=== PATIENT | female | born 1990 | race Caucasian/White ===

== ENCOUNTER → 2017-06-26 12:11 | Outpatient (CLI) | payer OTHER, SELFPAY ==
[2017-06-26 12:39] LABS: Potassium 3.4 mmol/L (3.5-5.1)
== END ==
PROVIDERS: Visit Provider Obstetrics & Gynecology
DX: Z34.83 Encounter for supervision of other normal pregnancy, third trimester (principal)
CPT/HCPCS: 36415; 84132

== ENCOUNTER → 2017-07-17 14:16 | Outpatient (CLI) | payer OTHER, SELFPAY ==
[2017-07-17 16:22] LABS: Hematocrit 36.1 % (37-47); Hemoglobin 11.8 g/dl (12.0-15.0); Mean Corp Hgb Conc 32.7 g/gl (32-36); Mean Corpuscular Hgb 27.5 pg (27.0-32.0); Mean Corpuscular Volume 84.1 fL (81-99); Mean Platelet Vol. 10.8 fl (6.2-12.0); Platelet Count 270 K/mm3 (150-450); RBC Distribution Width SD 39.6 fl (35.1-43.9); Red Blood Count 4.29 M/mm3 (4.2-5.4); White Blood Count 12.9 K/mm3 (4.4-11.0)
[2017-07-17 16:24] LABS: Uric Acid 2.9 mg/dL (2.6-6.0)
[2017-07-17 16:25] LABS: Scan Indicated on CBC? Y/N NO
[2017-07-17 16:39] LABS: Protein, Urine (Random) 18.2 mg/dL (<11.9)
== END ==
PROVIDERS: Visit Provider Obstetrics & Gynecology
DX: O13.9 Gestational [pregnancy-induced] hypertension without significant proteinuria, unspecified trimester (principal); Z3A.00 Weeks of gestation of pregnancy not specified
CPT/HCPCS: 36415; 82570; 84156; 84550; 85027

== ENCOUNTER 2017-07-24 15:59 | Outpatient (CLI) | payer OTHER, SELFPAY ==
[2017-07-24 16:12] VITALS: BMI 31.8
--- NOTE | 2017-07-24 17:16 | OB.TRI.NOTE ---
History of Present Illness Date of Service: 07/24/17 Was patient seen by the physician?: No Reason For Visit: NON STRESS TEST Date of Service: 07/24/17 Final FLORES: 08/30/17 Final FLORES Source: US <20 weeks Gestational age: 34 Weeks and 5 Days History of Present Illness: NST for well being mom with hypertension Home Medications Medication Instructions Recorded Doxylamine Succinate [Unisom Sleep 25 mg PO DAILY 07/24/17 Aid] Omeprazole Magnesium [Prilosec Otc] 20 mg PO DAILY 07/24/17 Allergies Penicillins [PCN] Allergy (Verified 07/24/17 16:13) Rash Physical Exam General: Alert, Oriented x3, Cooperative, No apparent distress Cardiovascular: Regular rate, Regular Rhythm Lungs: Clear to auscultation, Normal air movement Abdomen: Soft, Non Tender, Non-Distended, Gravid, Appropriate for Gestational Age Extremities:: No clubbing, No edema Estimated gestational size: Appropriate for gestational size Presentation: Cephalic NST - FHR Rate Baby A Baseline: 130s Variability:: Moderate Accelerations:: 15 x 15 Decelerations:: None NST Reactive:: Yes, Appropriate for gestational age FHR Category:: Category I Uterine Activity:: rare Impression/Plan Reassuring heart rate tracing. BP stable.
== END 2017-07-24 16:50 | disposition home or self-care (01) ==
LOC: WPOUT 16:03 → WP 16:03
PROVIDERS: Visit Provider Obstetrics & Gynecology
DX: O16.3 Unspecified maternal hypertension, third trimester (principal); Z3A.34 34 weeks gestation of pregnancy
CPT/HCPCS: 59025

== ENCOUNTER → 2017-08-06 16:26 | Outpatient (CLI) | payer OTHER, SELFPAY ==
[2017-08-06 18:00] LABS: Group B Strep DNA By PCR Negative (Negative); Internal Control PASS; Probe Check PASS; Specimen Processing Control PASS
== END ==
PROVIDERS: Visit Provider Obstetrics & Gynecology
DX: Z36.85 Encounter for antenatal screening for Streptococcus B (principal); J11.1 Influenza due to unidentified influenza virus with other respiratory manifestations
CPT/HCPCS: 87081; 87653; 87804

== ENCOUNTER 2017-08-27 07:06 | Inpatient (IN) | payer OTHER, SELFPAY ==
[2017-08-27] MEDS: Lactated Ringers 1,000 ML 50 ML IV ×3 (07:30→22:25)
[2017-08-27 07:54] VITALS: BMI 31.8
[2017-08-27 08:00] LABS: Hematocrit 36.4 % (37-47); Hemoglobin 11.9 g/dl (12.0-15.0); Mean Corp Hgb Conc 32.7 g/gl (32-36); Mean Corpuscular Hgb 26.6 pg (27.0-32.0); Mean Corpuscular Volume 81.3 fL (81-99); Mean Platelet Vol. 10.6 fl (6.2-12.0); Platelet Count 264 K/mm3 (150-450); RBC Distribution Width CV 14.4 % (11.6-14.6); RBC Distribution Width SD 42.5 fl (35.1-43.9); Red Blood Count 4.48 M/mm3 (4.2-5.4); White Blood Count 14.9 K/mm3 (4.4-11.0)
[2017-08-27 08:03] LABS: Scan Indicated on CBC? Y/N NO
[2017-08-27] MEDS: miSOPROStol 25 MCG TABLET PO ×3 (08:17→17:22)
[2017-08-27] MEDS: 0.9% Saline Lock 10 ML Syringe IV (12:22)
[2017-08-27] MEDS: Mag Hydrox/Al Hydrox/Simeth 30 ML UDC PO (16:37)
--- NOTE | 2017-08-27 19:07 | PCM.PN.BLA ---
Progress Note LABOR PROGRESS NOTE Denies headache, vision changes. Contractions are intensifying. Fetus is active. AVSS GEN -NAD FHR 125, moderate variability, + accelerations, no decelerations TOCO 3-4/10 min SVE deferred A/P: 27yo G1 @ 40wga with gestational HTN, IOL, Cat I FHR -s/p cytotec x 2 -No si/sx worsening HTN -Maternal and statuses reassuring
[2017-08-27] MEDS: fentaNYL-bupivacaine (epidural) 100 ML BAG EPIDURAL (21:06)
--- NOTE | 2017-08-28 00:01 | PCM.PN.BLA ---
Progress Note LABOR PROGRESS NOTE No complaints. She is comfortable with epidural. Feels well. AVSS, BP 117/62, P 83, T 97.5, R 16 GEN - NAD, AAO x 3 SVE 5/80/-1 per RN Michael Levine exam TOCO 3-4/10 min FHR series of recurrent variable and late decelerations over 16 minutes with intervenining moderate and minimal variability, now recovered to 130, moderate variability, + accelerations, no decelerations following maternal repositioning into Hands and Knees A/P: 27yo G1 @ 39 4/7wga, IOL for gestational HTN, Cat II FHR FHR decelerations improved with repositioning status overall reassuring s/p cytotec x 2 in active labor continue to monitor Will continue in labor
[2017-08-28] MEDS: fentaNYL-bupivacaine (epidural) 100 ML BAG EPIDURAL (01:18)
[2017-08-28] MEDS: Lactated Ringers 1,000 ML 50 ML IV ×2 (01:41→07:43)
[2017-08-28] MEDS: Mag Hydrox/Al Hydrox/Simeth 30 ML UDC PO (02:17)
[2017-08-28] MEDS: Oxytocin 30 units/NS 500 ml 30 UNITS/500 ML IV.SOLN IV (07:51)
--- NOTE | 2017-08-28 09:06 | PLAC_PTH ---
PATIENT: MELIZA HEBERT LOC: [facility] U#:[id number] AGE/SX: 27/F ROOM: WP006 RE08/27/[address]: Dr. Rach Duval MD : 1990 BED: 1 DIS: 08/30/2017 SPEC #: [id number] RECD: 08/28/17 14:43 STATUS: MARGARETTE REQ #: [id number] SUSAN: 08/28/17 09:[address]: Rach Clement DEPT: SURGICAL PATHOLOGY RECD BY: Konrad Zimmer ENTERED: 08/31/17 09:46 SP TYPE: PLACENTA OTHR DR: Caitlin Primary Care Phys Tissues: Placenta, NOS Procedures: Surgery Specimen Level V HEADER OPERATION: Vaginal delivery PRE-OP DIAGNOSIS: Gestational HTN, TISSUE SUBMITTED: Placenta MICROSCOPIC DIAGNOSIS Vicente placenta (470 gm): Umbilical cord ? trivascular with no inflammation. Placental membranes ? mild acute chorioamnionitis. Placental disc ? Mild Monica-Slade change, intravillous and intervillous congestion. AM:meet 09/01/17 MICROSCOPIC DESCRIPTION Slides are reviewed. GROSS DESCRIPTION SPECIMEN: PLACENTA / CLINICAL INFORMATION: A. Weight: 3.336 kg B. Gestational Age: 39 weeks C. Sex: Female PLACENTAL WEIGHT (POST FIXATION): 470 gm PLACENTAL DIMENSIONS: 19 x 18 x 2.5 cm PLACENTAL SHAPE: Usual ovoid PLACENTAL WEIGHT FOR GESTATIONAL AGE: Within 10-99th percentile MEMBRANES - Present A. Insertion: Marginal B. Site of rupture from edge: 2 cm from edge of placental disc C. Color of membrane: Martinez-marin D. Abnormalities: None UMBILICAL CORD - Present A. Color: Martinez-marin B. Insertion: Slightly eccentric C. Length: 26 cm D. Diameter: 1.5 cm E. Number of vessels: Three F. Abnormalities: None PLACENTAL DISC - Present A. Color of surface: Martinez-marin B. surface abnormalities: None C. Maternal cotyledons: Intact with minimal tears D. Attached retro placental clot: No clot E. Cut surface: Dark red and spongy F. Lesions: None G. Separate clot: Absent SECTIONS SUBMITTED: 1. Membrane roll and umbilical cord ( end notched) 2. Placental disc, and maternal surfaces 3. Placental disc, and maternal surfaces 4. Placental disc, and maternal surfaces AM:meet 08/31/17 TC:2 CPT: 60604
[2017-08-28] MEDS: Oxytocin 30 units/NS 500 ml 30 UNITS/500 ML IV.SOLN 334 UNITS IV (09:14)
[2017-08-28] MEDS: Oxytocin 30 units/NS 500 ml 30 UNITS/500 ML IV.SOLN 167 UNITS IV (09:45)
[2017-08-28] MEDS: 0.9% Saline Lock 10 ML Syringe IV (10:58)
[2017-08-28] MEDS: Senna/Docusate Sodium 1 Tablet PO (13:19)
[2017-08-28] MEDS: Naproxen 250 MG Tablet PO ×2 (13:21→21:30)
[2017-08-28] MEDS: Dibucaine 30 GM Tube 1 APPLIC TOPICAL (13:29)
[2017-08-28 14:48] VITALS: BP 141/84; PULSE 88; RESP 20; TEMP 36.8
--- NOTE | 2017-08-28 15:00 | PCM.OB.VAG ---
- Problem List (1) (spontaneous vaginal delivery) Status: Acute Vaginal Delivery Maternal Presentation: Medically Indicated Induction Method of Induction: Cytotec Medical Reason for Induction: Gestational Hypertension Amniotic Membrane Rupture Type: Spontaneous Rupture of Membrane time: 08/27/17 Amniotic Fluid Description: Clear Final FLORES: 08/30/17 Gestational age: 40 Weeks and 2 Days Date of Procedure: 08/28/17 Pre-Operative Diagnosis: 39 5/7wga, gestational HTN Post-Operative Diagnosis: 39 5/7wga, gestational HTN Surgery/ Procedure Performed: Spontaneous Vaginal Delivery Anesthesiologist: Gasper Corley Type of Anesthesia: Epidural Description of Procedure: Patient was FD/+4 station on my arrival. She pushed to deliver a vigorous female in OA. The infant was placed on the maternal abdomen and further attended by nursery personnel. The cord was doubly clamped and cut. Cord blood and cord gas specimen were obtained. The placenta delivered spontaneously and appeared intact on inspection. A first degree perineal laceration with vaginal extension was repaired with 3-0 Vicryl Rapide with excellent hemostasis. The fundus was firm at the umbilicus. Presentation: Vertex Placental Delivery Description: Spontaneous Placenta Disposition: Sent to Pathology Cord Vessel Description: 3 Vessels Nuchal Cord Compression: Without compression Cord Gases drawn per routine: ABG Cord Entanglement: None Drain: Root to straight drain Estimated Blood Loss: 250 ml Infant A gender: Female (1 minute): 8 (5 minute): 9 Episiotomy Description: None Laceration: Midline, Perineal Extension/lac, Vaginal Extension/lac, 1st degree Medications given after delivery: IV Pitocin Complications: None
[2017-08-28 17:12] VITALS: BP 130/85; PULSE 78; RESP 16; TEMP 36.6
[2017-08-28] MEDS: Acetaminophen 500 MG Tablet PO (19:15)
[2017-08-28 20:17] VITALS: BP 134/87; PULSE 80; RESP 18; TEMP 36.7
[2017-08-29 00:45] VITALS: BP 138/87; PULSE 73; RESP 18; TEMP 36.1
[2017-08-29] MEDS: Acetaminophen 500 MG Tablet PO ×2 (04:47→13:49)
[2017-08-29 04:48] VITALS: BP 125/76; PULSE 78; RESP 18; TEMP 36.1
[2017-08-29] MEDS: Dibucaine 30 GM Tube 1 APPLIC TOPICAL (06:55)
--- NOTE | 2017-08-29 07:53 | PCM.PN.OB ---
Subjective: PPD#1 induction for PIH doing well. Minimal pain. Tired and would like to stay today. Tylenol and Naprosyn for pain. - Physical Exam General: Alert, Oriented x3, Cooperative, No apparent distress HEENT: Atraumatic Neck: Supple Abdomen: Soft - Fundus firm NT at approx 1 cm inferior to umbilicus Psych/Mental Status: Normal Affect Vital Signs Temp Pulse Resp BP 97 F L 78 18 125/76 H 08/29/17 04:48 08/29/17 04:48 08/29/17 04:48 08/29/17 04:48 Oxygen Delivery Method Room Air Weight: 86.908 kg Body Mass Index (BMI) 31.8 Intake and Output for Last 24 Hours 08/27/17 08/28/17 08/29/17 23:59 23:59 23:59 Intake Total 350 / 350 3682 / 3682 Output Total 500 / 500 2900 / 2900 Balance -150 / -150 782 / 782 Medical Necessity - Tobacco Use Smoking Status: Never smoker Assessment/Plan PPD#1 Stable pp. Continue care. Plan for d/c home on PPD#2
--- NOTE | 2017-08-29 07:55 | PCM.DCVAG ---
Discharge Diet: No Restrictions Discharge Activity: May Shower, May Take a Tub Bath Return to work on:: 10/12/17 May resume sexual activity in: 4-6 weeks Additional Instructions: If you experience any of the following, contact your healthcare provider. Bleeding that soaks a pad every hour for 2 hours Fever 100.4 or higher Unrelieved abdominal pain Problems urinating (including inability to urinate or burning while urinating). Visual changes Severe headache Flu-like symptoms Pain or redness in one of both of your breasts Pain, warmth, tenderness or swelling in your legs, especially the calf area Frequent nausea and vomiting Symptoms of depression or anxiety If you experience any of the following, call 911 or go to the nearest Emergency Room. Chest pain Problems breathing Seizure activity Partial or complete paralysis of a body part, slurred speech, weakness or drooping of the face, or a sudden inability to walk or hold your balance Allergies/Adverse Reactions: Allergies Penicillins [PCN] Allergy (Verified 08/27/17 07:55) Rash Medications to take at Discharge Doxylamine Succinate [Unisom Sleep Aid] 25 mg PO DAILY 07/24/17 Omeprazole Magnesium [Prilosec Otc] 20 mg PO DAILY 07/24/17 Vits [Prenatabs FA ] 1 tab PO DAILY 08/27/17 Orders to be completed after discharge: Electric breast pump Time Frame: 1 Year, Location: None Selected Please Follow Up With: Rach Sloan MD - [phone] When: Call to make an appointment with your doctor in 6 weeks. Primary Care Physician: Care Physician,No Primary [Primary Care Provider] - Proposed Discharge Date: 08/30/17
--- NOTE | 2017-08-29 07:56 | DCINST_ITS ---
Discharge Diet: No Restrictions Discharge Activity: May Shower, May Take a Tub Bath Return to work on:: 10/12/17 May resume sexual activity in: 4-6 weeks Additional Instructions: If you experience any of the following, contact your healthcare provider. * Bleeding that soaks a pad every hour for 2 hours * Fever 100.4 or higher * Unrelieved abdominal pain * Problems urinating (including inability to urinate or burning while urinating) . * Visual changes * Severe headache * Flu-like symptoms * Pain or redness in one of both of your breasts * Pain, warmth, tenderness or swelling in your legs, especially the calf area * Frequent nausea and vomiting * Symptoms of depression or anxiety If you experience any of the following, call 911 or go to the nearest Emergency Room. * Chest pain * Problems breathing * Seizure activity * Partial or complete paralysis of a body part, slurred speech, weakness or drooping of the face, or a sudden inability to walk or hold your balance Allergies/Adverse Reactions: Allergies Penicillins [PCN] Allergy (Verified 08/27/17 07:55) Rash Medications to take at Discharge Doxylamine Succinate [Unisom Sleep Aid] 25 mg PO DAILY 07/24/17 Omeprazole Magnesium [Prilosec Otc] 20 mg PO DAILY 07/24/17 Vits [Prenatabs FA ] 1 tab PO DAILY 08/27/17 Orders to be completed after discharge: Electric breast pump Time Frame: 1 Year, Location: None Selected Please Follow Up With: Rach Sloan MD - [phone] When: Call to make an appointment with your doctor in 6 weeks. Primary Care Physician: Care Physician,No Primary [Primary Care Provider] - Proposed Discharge Date: 08/30/17
[2017-08-29 08:40] VITALS: BP 135/79; PULSE 73; RESP 16; TEMP 36.4; O2SAT 98
[2017-08-29] MEDS: Naproxen 250 MG Tablet PO ×2 (08:42→20:57)
[2017-08-29 13:45] VITALS: BP 137/77; PULSE 72; RESP 16; TEMP 36.7; O2SAT 97
[2017-08-29] MEDS: Senna/Docusate Sodium 1 Tablet PO (13:49)
[2017-08-29] MEDS: Prenatal Vits Tablet 1 TABLET PO (13:49)
[2017-08-29 20:00] VITALS: BP 143/94; PULSE 82; RESP 14; TEMP 36.7; O2SAT 96
[2017-08-30 01:15] VITALS: BP 142/82; PULSE 79; RESP 14; TEMP 36.4; O2SAT 97
[2017-08-30 06:33] LABS: Pathology Specimen OB SEE PATHOLOGY REPORT
--- NOTE | 2017-08-30 07:18 | PCM.PN.OB ---
Subjective: Lying in bed, holding sleeping baby. Plans to nurse. Baby latching well at times and no interest at other times. Asking about syringe to feed pumped milk. May consider cup feeding or consider use of medicine type syringe to feed breast milk without bottle. Minimal pain, cramping - Physical Exam General: Alert, Oriented x3, Cooperative, No apparent distress HEENT: Atraumatic Neck: Supple Abdomen: Soft, Non Tender Psych/Mental Status: Normal Affect Vital Signs Temp Pulse Resp BP Pulse Ox 97.5 F L 79 14 142/82 H 97 08/30/17 01:15 08/30/17 01:15 08/30/17 01:15 08/30/17 01:15 08/30/17 01:15 Oxygen Delivery Method Room Air Weight: 86.908 kg Body Mass Index (BMI) 31.8 Intake and Output for Last 24 Hours 08/28/17 08/29/17 08/30/17 23:59 23:59 23:59 Intake Total 3682 / 3682 Output Total 2900 / 2900 Balance 782 / 782 Medical Necessity - Tobacco Use Smoking Status: Never smoker Assessment/Plan PPD#2 Stable pp. home today. RTO in 6 wk for pp check as planned
[2017-08-30 09:30] VITALS: BP 133/75; PULSE 80; RESP 20; TEMP 36.5
[2017-08-30] MEDS: Naproxen 250 MG Tablet PO (09:52)
== END 2017-08-30 13:05 | disposition home or self-care (01) | DRG 775 ==
LOC: OBS 07:10 → WP 07:13
PROVIDERS: Admitting Provider Obstetrics & Gynecology; Visit Provider Obstetrics & Gynecology
DX: O13.4 Gestational [pregnancy-induced] hypertension without significant proteinuria, complicating childbirth (principal); Z3A.39 39 weeks gestation of pregnancy; Z37.0 Single live birth
CPT/HCPCS: 59025; 59050; 85027; 86850; 86900; 88307; 99218; J7120; A4216; G0378

== ENCOUNTER 2017-09-10 09:37 | Outpatient (CLI) | payer OTHER, SELFPAY | END 2017-09-10 10:37 | disposition home or self-care (01) | LOC: WPOUT 09:39 → WP 09:40 | PROVIDERS: Visit Provider Obstetrics & Gynecology | DX: P92.5 Neonatal difficulty in feeding at breast (principal) | CPT/HCPCS: 96152 ==

== ENCOUNTER → 2018-12-22 14:19 | Outpatient (CLI) | payer OTHER, SELFPAY | PROVIDERS: Visit Provider Obstetrics & Gynecology | DX: Z12.4 Encounter for screening for malignant neoplasm of cervix (principal) ==

== ENCOUNTER → 2018-12-29 13:55 | Outpatient (CLI) | payer OTHER, SELFPAY ==
--- NOTE | 2018-12-29 14:06 | US_ITS ---
STUDY: ULTRASOUND BREAST - RIGHT REASON FOR EXAM: Female, 28 years old. Induration on the right side due to prior history of mastitis twice this year. TECHNIQUE: Axial and longitudinal images of the RIGHT breast were performed with a high resolution ultrasound transducer. COMPARISON: Mammogram on the same date FINDINGS: RIGHT Breast: There is no evidence of focal abnormality, in the region of concern. No evidence of cystic or solid lesion is visualized, in the region of the palpable focus. Unremarkable visualized fibroglandular tissue. US/Breast Limited Unilateral IMPRESSION: No evidence of lesion is visualized in the region of concern, along the palpable focus. ASSESSMENT CATEGORY: BIRADS Category 1: Negative. A letter regarding these results will be sent to the patient by the facility within 30 days. Electronically Signed: Carlos Rowland MD at 14:52 EDT Tel [phone], Service support ,
--- NOTE | 2018-12-29 14:06 | BI_ITS ---
MAMMOGRAPHY - BILATERAL DIAGNOSTIC REASON FOR EXAM: Female, 28 years old. Induration on the right side due to prior history of mastitis twice PERTINENT HISTORY: Mother with breast cancer. TECHNIQUE: Digital examination. Mediolateral oblique (MLO) and craniocaudad (CC) views of both breasts were obtained. 3-D tomosynthesis was performed. CAD: CAD was performed on this study. COMPARISON: None. FINDINGS: Breast Composition: There are scattered areas of fibroglandular density. There are no dominant masses or suspicious calcifications. No evidence of mammographic abnormality corresponding to the focal region with tenderness. Sonogram of the same area also demonstrates no focal abnormality. No other significant abnormalities are identified. BI/DIAG MAMM W/CAD, BILAT IMPRESSION: Negative diagnostic mammogram. Yearly followup recommended when patient is 42 years old. ASSESSMENT CATEGORY: BIRADS Category 2: Benign. A letter regarding these results will be sent to the patient by the facility within 30 days. FOLLOW UP RECOMMENDATION: Begin screening mammograms at 40 years of age. (N) Approximately 10% of breast cancers are not detected by mammography. A normal mammogram should not delay biopsy of a clinically suspicious abnormality. Electronically Signed: Carlos Rowland MD at 16:29 EDT Tel [phone], Service support ,
== END ==
PROVIDERS: Family Provider Family Medicine; PCP Family Medicine; Referring Provider Obstetrics & Gynecology; Visit Provider Obstetrics & Gynecology
DX: N64.51 Induration of breast (principal)
CPT/HCPCS: 76642; 77062; 77066; G0279

== ENCOUNTER → 2019-11-16 12:28 | Outpatient (CLI) | payer OTHER, SELFPAY ==
[2019-11-16 13:24] VITALS: BP 123/75; PULSE 65; RESP 16; TEMP 36.8; O2SAT 97; BMI 27.4
[2019-11-16] MEDS: Lactated Ringers 1,000 ML 999 ML IV (13:29)
[2019-11-16] MEDS: 0.9% NaCl Peripheral Flush Adult/Peds IV (13:30)
[2019-11-16 13:39] LABS: Absolute Lymphocyte Count 2.39 X10^3/uL (0.83-4.51); Absolute Neutrophil Count 9.8 X10^3/uL (2.0-7.7); Basophil# 0.03 X10^3/uL; Basophil% 0.2 % (0-1); Eosinophil# 0.11 X10^3/uL; Eosinophils% 0.8 % (0-5); Hematocrit 42.8 % (37-47); Hemoglobin 14.3 g/dL (12.0-15.0); Lymphocyte # 2.39 X10^3/ul (4.0); Lymphocyte % 18.4 % (19-41); Mean Corp Hgb Conc 33.4 g/dL (32-36); Mean Corpuscular Hgb 28.5 pg (27.0-32.0); Mean Corpuscular Volume 85.3 fL (81-99); Mean Platelet Vol. 10.2 fl (6.2-12.0); Monocyte# 0.62 X10^3/uL; Monocyte% 4.8 % (0-10); NRBC Flagged by Analyzer 0 % (0-5); Neutrophil # 9.83 X10^3/uL (2.7-7.7); Neutrophil % 75.5 % (47-70); Platelet Count 282 K/mm3 (150-450); RBC Distribution Width CV 12.4 % (11.6-14.6); RBC Distribution Width SD 37.7 fl (35.1-43.9); Red Blood Count 5.02 M/mm3 (4.2-5.4)
[2019-11-16 13:52] LABS: ALB/GLOB Ratio 1.1 RATIO (0.9-2.4); AST(SGOT) 22 U/L (15-37); Alanine Aminotransfer ALT/SGPT 21 U/L (13-56); Albumin, Serum 3.6 g/dL (3.2-5.0); Alkaline Phosphatase 57 U/L (45-117); Anion Gap 8 (5-15); BUN 10 mg/dL (7-18); Calcium,Total 8.7 mg/dL (8.5-10.1); Chloride 107 mmol/L (98-107); Creatinine, Serum 0.62 mg/dL (0.55-1.02); EST Glomerular Filtration Rate 121 mL/min (>60); Est Glom Filt Rate - Afr Amer 147 mL/min (>60); Estimated Creatinine Clearance 127.59 ml/min; Globulin 3.4 g/dL (2.2-4.2); Glucose 85 mg/dL (74-106); Sodium Level 137 mmol/L (136-145)
[2019-11-16] MEDS: Metoclopramide 10 MG/2 ML Vial 5 MG IV (14:14)
[2019-11-16 21:33] LABS: Xtra Tube EP Lab EXTRA TUBE
== END ==
PROVIDERS: PCP Nurse Practitioner Family; Referring Provider Advanced Practice Midwife; Visit Provider Advanced Practice Midwife
DX: O21.9 Vomiting of pregnancy, unspecified (principal); Z3A.00 Weeks of gestation of pregnancy not specified
CPT/HCPCS: 96361; 96374; 80053; 85025; J7120; A4216

== ENCOUNTER 2020-04-26 14:40 | Outpatient (CLI) | payer OTHER, SELFPAY ==
[2019-11-16 13:24] VITALS: BMI 27.4
[2020-04-26] VITALS (12 sets, daily range): BP systolic 135–166; BP diastolic 83–96; PULSE 86–115; RESP 18; TEMP 36.6–37.4; O2SAT 98–99; BMI 33.7
[2020-04-26 15:16] LABS: Hematocrit 31.9 % (37-47); Mean Corp Hgb Conc 31.3 g/dL (32-36); Mean Corpuscular Hgb 23.6 pg (27.0-32.0); Mean Corpuscular Volume 75.4 fL (81-99); Mean Platelet Vol. 11.5 fl (6.2-12.0); Platelet Count 296 K/mm3 (150-450); RBC Distribution Width CV 15.6 % (11.6-14.6); RBC Distribution Width SD 42.7 fl (35.1-43.9); Red Blood Count 4.23 M/mm3 (4.2-5.4); White Blood Count 13.7 K/mm3 (4.4-11.0)
[2020-04-26 15:23] LABS: International Normalized Ratio 0.9; Partial Thromboplast Time 25.7 Seconds (24.1-36.2); Prothrombin Time (Protime)PT. 11.9 SECONDS (11.7-14.9)
[2020-04-26 15:48] LABS: AST(SGOT) 21 U/L (15-37); Alanine Aminotransfer ALT/SGPT 16 U/L (13-56); Creatinine, Serum 0.58 mg/dL (0.55-1.02); EST Glomerular Filtration Rate 132 mL/min (>60); Est Glom Filt Rate - Afr Amer 160 mL/min (>60); Estimated Creatinine Clearance 135.19 ml/min; LDH 124 U/L (84-246); Uric Acid 3.2 mg/dL (2.6-6.0)
[2020-04-26] MEDS: Betamethasone/Betamethasone 30 MG/5 ML Vial 12 MG IM (16:01)
[2020-04-26] MEDS: Labetalol 100 MG Tablet PO (16:59)
[2020-04-26] MEDS: Lactated Ringers 1,000 ML 999 ML IV (17:00)
[2020-04-26 17:27] LABS: Protein, Urine (Random) 38.1 mg/dL (<11.9); Protein:Creat Ratio 188 mg/g CRE (0-200)
--- NOTE | 2020-04-26 18:20 | NURSING ---
Pt evaluated by Dr. Motley in office today and sent from her office with orders for pt hospital evaluation per Saira THORNTON and patient.
--- NOTE | 2020-04-27 07:03 | OB.TRI.NOTE ---
History of Present Illness Date of Service: 04/26/20 Was patient seen by the physician?: No Reason For Visit: R/O LABOR Date of Service: 04/26/20 Final FLORES: 06/17/20 Final FLORES Source: US <20 weeks Gestational age: 32 Weeks and 5 Days History of Present Illness: 30-year-old female who presented from the office for evaluation due to twin gestation with a blood pressures. She had a headache that was actually worse on 04/25/2020 it was mild this afternoon on 1217. Her blood pressures are trending up at home and were elevated in the office. Was evaluated in the office by Dr. Motley she denied any visual changes or epigastric pain. She has had persistent nausea vomiting throughout the but stated she had not had any vomiting in over 24 hours. She denied feeling any regular contractions. She denied any vaginal bleeding or leaking of fluid. Allergies Penicillins [PCN] Allergy (Verified 04/26/20 15:10) Rash Laboratory Studies: Laboratory Tests 04/26/20 04/26/20 04/26/20 Range/Units 16:45 15:00 15:00 WBC (4.4-11.0) K/mm3 RBC (4.2-5.4) M/mm3 Hgb (12.0-15.0) g/dL Hct (37-47) % MCV (81-99) fL MCH (27.0-32.0) pg MCHC (32-36) g/dL RDW Std Deviation (35.1-43.9) fl RDW Coeff of Esa (11.6-14.6) % Plt Count (150-450) K/mm3 MPV (6.2-12.0) fl PT 11.9 (11.7-14.9) SECONDS INR 0.9 APTT 25.7 (24.1-36.2) Seconds Creatinine 0.58 (0.55-1.02) mg/dL Estim Creat Clear Calc 135.19 ml/min Est GFR (MDRD) Af Amer 160 (>60) mL/min Est GFR (MDRD) Non-Af 132 (>60) mL/min Uric Acid 3.2 (2.6-6.0) mg/dL AST 21 (15-37) U/L ALT 16 (13-56) U/L Lactate Dehydrogenase 124 (84-246) U/L U Random Total Protein 38.1 H (<11.9) mg/dL Urine Creatinine 203.00 (NO RANGE EST.) mg/dL Protein/Creatinin Ratio 188 (0-200) mg/g CRE 04/26/20 Range/Units 15:00 WBC 13.7 H (4.4-11.0) K/mm3 RBC 4.23 (4.2-5.4) M/mm3 Hgb 10.0 L (12.0-15.0) g/dL Hct 31.9 L (37-47) % MCV 75.4 L (81-99) fL MCH 23.6 L (27.0-32.0) pg MCHC 31.3 L (32-36) g/dL RDW Std Deviation 42.7 (35.1-43.9) fl RDW Coeff of Esa 15.6 H (11.6-14.6) % Plt Count 296 (150-450) K/mm3 MPV 11.5 (6.2-12.0) fl PT (11.7-14.9) SECONDS INR APTT (24.1-36.2) Seconds Creatinine (0.55-1.02) mg/dL Estim Creat Clear Calc ml/min Est GFR (MDRD) Af Amer (>60) mL/min Est GFR (MDRD) Non-Af (>60) mL/min Uric Acid (2.6-6.0) mg/dL AST (15-37) U/L ALT (13-56) U/L Lactate Dehydrogenase (84-246) U/L U Random Total Protein (<11.9) mg/dL Urine Creatinine (NO RANGE EST.) mg/dL Protein/Creatinin Ratio (0-200) mg/g CRE Physical Exam Vitals: Vital Signs Temp Pulse Resp BP Pulse Ox 97.9 F 97 18 145/94 H 99 04/26/20 17:52 04/26/20 17:45 04/26/20 18:34 04/26/20 17:49 04/26/20 17:45 NST - FHR Rate Baby A Baseline: 125 Variability:: Moderate Accelerations:: 15 x 15 Decelerations:: Variable - x1 NST Reactive:: Yes, Appropriate for gestational age FHR Category:: Category I - for > 20 min before d/c Uterine Activity:: irreg ctxs - FHR Rate Baby B Baseline: 130-135 Variability:: Moderate Accelerations:: 15 x 15 Decelerations:: None NST Reactive:: Yes FHR Category:: Category I Impression/Plan 30 YOF w/ 32 w 4 day twins w/ gestational hypertension, no evidence of preeclampsia S/p betamethasone x 1 04/26 repeat tomorrow 04/27 follow closely start labetalol kick counts return if symptoms/signs of severe preeclampsia
== END 2020-04-26 18:30 | disposition home or self-care (01) ==
LOC: WPOUT 14:48 → WP 14:48
PROVIDERS: PCP Nurse Practitioner Family; Referring Provider Obstetrics & Gynecology; Visit Provider Obstetrics & Gynecology
DX: O30.003 Twin pregnancy, unspecified number of placenta and unspecified number of amniotic sacs, third trimester (principal); O13.3 Gestational [pregnancy-induced] hypertension without significant proteinuria, third trimester; Z3A.32 32 weeks gestation of pregnancy; Z88.0 Allergy status to penicillin
CPT/HCPCS: 96360; 36415; 59025; 59050; 82565; 82570; 83615; 84156; 84450; 84460; 84550; 85027; 85610; 85730; 96372; 99218; J7120; G0378; J0702

== ENCOUNTER 2020-05-07 10:40 | Outpatient (CLI) | payer OTHER, SELFPAY ==
[2020-04-26 15:20] VITALS: BMI 33.7
[2020-05-07 11:08] VITALS: BP 158/95; PULSE 100
[2020-05-07 11:19] LABS: Hematocrit 30.2 % (37-47); Hemoglobin 9.6 g/dL (12.0-15.0); Mean Corp Hgb Conc 31.8 g/dL (32-36); Mean Corpuscular Hgb 24.2 pg (27.0-32.0); Mean Corpuscular Volume 76.1 fL (81-99); Platelet Count 240 K/mm3 (150-450); RBC Distribution Width CV 18.5 % (11.6-14.6); RBC Distribution Width SD 47.1 fl (35.1-43.9); Red Blood Count 3.97 M/mm3 (4.2-5.4); White Blood Count 14.2 K/mm3 (4.4-11.0)
[2020-05-07 11:22] VITALS: BP 141/82; PULSE 95
[2020-05-07 11:29] LABS: AST(SGOT) 18 U/L (15-37); Alanine Aminotransfer ALT/SGPT 13 U/L (13-56); Creatinine, Serum 0.62 mg/dL (0.55-1.02); EST Glomerular Filtration Rate 123 mL/min (>60); Est Glom Filt Rate - Afr Amer 149 mL/min (>60); Uric Acid 4.2 mg/dL (2.6-6.0)
[2020-05-07 11:30] VITALS: BMI 34.0
[2020-05-07 11:38] VITALS: BP 147/89; PULSE 102
[2020-05-07 11:52] VITALS: BP 143/80; PULSE 98
[2020-05-07 12:25] VITALS: BP 134/90; PULSE 87
[2020-05-07 12:33] LABS: Protein, Urine (Random) 35.1 mg/dL (<11.9); Protein:Creat Ratio 184 mg/g CRE (0-200)
--- NOTE | 2020-05-11 11:17 | OB.TRI.PN ---
Progress Notes Date of Service: 05/07/20 Progress Note: female at 34w1d Di/Di twin gestation presented to labor and delivery for triage and evaluation of preeclampsia and serial blood pressure. Sent over from office by O: BP stable Preeclampsia labs nml Baby A 135, moderate variability, accels, reactive Baby B 140, moderate variability, accels, reactive Last Vital Signs Pulse 87 05/07/20 12:25 BP 134/90 H 05/07/20 12:25 Labs & Testing WBC 14.2 K/mm3 (4.4-11.0) H 05/07/20 11:00 RBC 3.97 M/mm3 (4.2-5.4) L 05/07/20 11:00 Hgb 9.6 g/dL (12.0-15.0) L 05/07/20 11:00 Hct 30.2 % (37-47) L 05/07/20 11:00 MCV 76.1 fL (81-99) L 05/07/20 11:00 MCH 24.2 pg (27.0-32.0) L 05/07/20 11:00 MCHC 31.8 g/dL (32-36) L 05/07/20 11:00 RDW Std Deviation 47.1 fl (35.1-43.9) H 05/07/20 11:00 RDW Coeff of Esa 18.5 % (11.6-14.6) H 05/07/20 11:00 Plt Count 240 K/mm3 (150-450) 05/07/20 11:00 MPV 11.0 fl (6.2-12.0) 05/07/20 11:00 Creatinine 0.62 mg/dL (0.55-1.02) 05/07/20 11:00 Est GFR (MDRD) Af Amer 149 mL/min (>60) 05/07/20 11:00 Est GFR (MDRD) Non-Af 123 mL/min (>60) 05/07/20 11:00 Uric Acid 4.2 mg/dL (2.6-6.0) 05/07/20 11:00 AST 18 U/L (15-37) 05/07/20 11:00 ALT 13 U/L (13-56) 05/07/20 11:00 U Random Total Protein 35.1 mg/dL (<11.9) H 05/07/20 12:10 Urine Creatinine 191.00 mg/dL (NO RANGE EST.) 05/07/20 12:10 Protein/Creatinin Ratio 184 mg/g CRE (0-200) 05/07/20 12:10 A: Di/Di Twin Gestation Elevated BP P: 1) BP stable 2) Preeclampsia labs normal 3) Reactive NST 4) D/C home and follow up in office as scheduled. Laboratory Studies: Laboratory Tests 05/07/20 05/07/20 05/07/20 Range/Units 12:10 11:00 11:00 WBC 14.2 H (4.4-11.0) K/mm3 RBC 3.97 L (4.2-5.4) M/mm3 Hgb 9.6 L (12.0-15.0) g/dL Hct 30.2 L (37-47) % MCV 76.1 L (81-99) fL MCH 24.2 L (27.0-32.0) pg MCHC 31.8 L (32-36) g/dL RDW Std Deviation 47.1 H (35.1-43.9) fl RDW Coeff of Esa 18.5 H (11.6-14.6) % Plt Count 240 (150-450) K/mm3 MPV 11.0 (6.2-12.0) fl Creatinine 0.62 (0.55-1.02) mg/dL Est GFR (MDRD) Af Amer 149 (>60) mL/min Est GFR (MDRD) Non-Af 123 (>60) mL/min Uric Acid 4.2 (2.6-6.0) mg/dL AST 18 (15-37) U/L ALT 13 (13-56) U/L U Random Total Protein 35.1 H (<11.9) mg/dL Urine Creatinine 191.00 (NO RANGE EST.) mg/dL Protein/Creatinin Ratio 184 (0-200) mg/g CRE
== END 2020-05-07 13:10 | disposition home or self-care (01) ==
LOC: WPOUT 10:43 → WP 10:44
PROVIDERS: Obstetrics & Gynecology; PCP Nurse Practitioner Family; Visit Provider Advanced Practice Midwife
DX: O30.043 Twin pregnancy, dichorionic/diamniotic, third trimester (principal); Z3A.34 34 weeks gestation of pregnancy; O26.893 Other specified pregnancy related conditions, third trimester; R03.0 Elevated blood-pressure reading, without diagnosis of hypertension
CPT/HCPCS: 36415; 59025; 59050; 82565; 82570; 84156; 84450; 84460; 84550; 85027; 99218; G0378

== ENCOUNTER 2020-05-18 23:55 | Outpatient (CLI) | payer OTHER, SELFPAY ==
[2020-05-19 00:25] VITALS: PULSE 102; O2SAT 97
[2020-05-19 00:27] VITALS: BP 137/94; PULSE 105
[2020-05-19 00:42] VITALS: BP 144/92; PULSE 106
[2020-05-19 01:08] VITALS: BP 124/78; PULSE 91
[2020-05-19 01:13] VITALS: BMI 34.8
[2020-05-19 01:18] VITALS: BP 127/72; PULSE 97
[2020-05-19 01:31] LABS: Color, Urine Yellow (Yellow); Glucose, Dipstick Normal (Normal); Ketone-Dipstick Negative (Negative); Leukocyte Esterase-Dipstick 25 /ul (Negative); Nitrite-Dipstick Negative (Negative); Occult Blood-Urine Negative /ul (Negative); Protein-Dipstick Negative (Negative); Urine Bilirubin Dipstick Negative (Negative); Urine Clarity Sl. Cloudy (Clear); Urine Urobilinogen Normal (Normal); Urine pH 6.5 (5.0 - 8.0)
--- NOTE | 2020-05-19 08:40 | OB.TRI.NOTE ---
History of Present Illness Date of Service: 05/18/20 Was patient seen by the physician?: No Reason For Visit: RULE OUT LABOR Date of Service: 05/18/20 Final FLORES: 06/17/20 Final FLORES Source: US <20 weeks Gestational age: 35 Weeks and 6 Days Allergies Penicillins [PCN] Allergy (Verified 05/19/20 01:15) Rash Laboratory Studies: Laboratory Tests 05/19/20 Range/Units 01:15 Urine Color Yellow (Yellow) Urine Clarity Sl. Cloudy (Clear) Urine pH 6.5 (5.0 - 8.0) Ur Specific [place] 1.010 (1.002-1.030) Urine Protein Negative (Negative) mg/dl Urine Glucose (UA) Normal (Normal) mg/dl Urine Ketones Negative (Negative) mg/dl Urine Occult Blood Negative (Negative) /ul Urine Nitrite Negative (Negative) Urine Bilirubin Negative (Negative) mg/dL Urine Urobilinogen Normal (Normal) mg/dl Ur Leukocyte Esterase 25 H (Negative) /ul Physical Exam Vitals: Vital Signs Pulse BP Pulse Ox 97 127/72 H 97 05/19/20 01:18 05/19/20 01:18 05/19/20 00:25 NST - FHR Rate Baby A Baseline: 135 Variability:: Moderate Accelerations:: 15 x 15 Decelerations:: None NST Reactive:: Yes FHR Category:: Category I Uterine Activity:: irregular - FHR Rate Baby B Baseline: 135 Variability:: Moderate Accelerations:: 15 x 15 Decelerations:: None NST Reactive:: Yes FHR Category:: Category I Impression/Plan 30yo @ 35.6 weeks, Twins with Contractions- not in labor 1) cervical exam unchanged since office on Thursday05/15/20 2) Dc home - labor precautions
== END 2020-05-19 02:35 | disposition home or self-care (01) ==
LOC: WPOUT 23:59 → WP 23:59
PROVIDERS: PCP Nurse Practitioner Family; Referring Provider Obstetrics & Gynecology; Visit Provider Obstetrics & Gynecology
DX: O30.043 Twin pregnancy, dichorionic/diamniotic, third trimester (principal); Z3A.35 35 weeks gestation of pregnancy; Z88.0 Allergy status to penicillin
CPT/HCPCS: 59025; 59050; 81002; 99218; G0378

== ENCOUNTER 2020-05-22 02:25 | Inpatient (IN) | payer OTHER, SELFPAY ==
[2020-05-22] VITALS (42 sets, daily range): BP systolic 120–176; BP diastolic 59–105; PULSE 74–108; RESP 16–18; TEMP 36.2–36.8; O2SAT 88–100; BMI 35.6
[2020-05-22 02:15] LABS: ROM Internal Control Test YES-OK TO RESULT pt. (Internal QC)
[2020-05-22 02:16] LABS: ROM Patient Test POSITIVE (Negative)
[2020-05-22] MEDS: Lactated Ringers 500 ML 999 ML IV (02:25)
[2020-05-22] MEDS: Ondansetron 4 MG/2 ML Vial IV (02:30)
[2020-05-22 02:40] LABS: Absolute Lymphocyte Count 2.69 X10^3/uL (0.83-4.51); Absolute Neutrophil Count 8.4 X10^3/uL (2.0-7.7); Basophil# 0.05 X10^3/uL; Basophil% 0.4 % (0-1); Eosinophil# 0.93 X10^3/uL; Eosinophils% 7.2 % (0-5); Hematocrit 30.5 % (37-47); Hemoglobin 9.5 g/dL (12.0-15.0); Lymphocyte # 2.69 X10^3/ul (4.0); Lymphocyte % 20.9 % (19-41); Mean Corp Hgb Conc 31.1 g/dL (32-36); Mean Corpuscular Hgb 21.8 pg (27.0-32.0); Mean Corpuscular Volume 70.1 fL (81-99); Mean Platelet Vol. 10.9 fl (6.2-12.0); Monocyte# 0.71 X10^3/uL; Monocyte% 5.5 % (0-10); NRBC Flagged by Analyzer 0 % (0-5); Neutrophil # 8.41 X10^3/uL (2.7-7.7); Neutrophil % 65.5 % (47-70); Platelet Count 303 K/mm3 (150-450); RBC Distribution Width SD 45.4 fl (35.1-43.9); Red Blood Count 4.35 M/mm3 (4.2-5.4); White Blood Count 12.9 K/mm3 (4.4-11.0)
[2020-05-22] MEDS: Lactated Ringers 1,000 ML 200 ML IV (02:56)
[2020-05-22] MEDS: fentaNYL-bupivacaine (epidural) 100 ML BAG EPIDURAL (03:19)
[2020-05-22 03:45] LABS: Hepatitis C Antibody Non-Reactive (Nonreactive)
--- NOTE | 2020-05-22 07:58 | PCM.HP.OB ---
- Problem List (1) 36 weeks gestation of Status: Acute (2) Twin gestation in third trimester Status: Acute (3) Hyperemesis gravidarum Status: Acute (4) Gestational hypertension Status: Acute History Date of Admission: 05/22/20 Final FLORES: 06/17/20 Final FLORES Source: US <20 weeks Gestational age: 36 Weeks and 2 Days History of this : This is a 30 year-old at 36w2d with di/di twin gestation presented with SROM and in labor. Cervical change from 1 to 5 cm. Medical History: Medical History (Last Updated 05/22/20 @ 08:[address] Kiah Nguyen, DO) History of anxiety Z86.59 History of depression Z87.59, Z86.59 Allergies Penicillins [PCN] Allergy (Verified 05/22/20 01:33) Rash Home Medications: Home Medications Doxylamine Succinate [Unisom Sleep Aid] 25 mg PO DAILY 07/24/17 Omeprazole Magnesium [Prilosec Otc] 20 mg PO DAILY 07/24/17 Vits [Prenatabs FA ] 1 tab PO DAILY 08/27/17 Aspirin, Baby 81 mg PO DAILY 04/26/20 Ondansetron [Zofran] 32 mg SQ DAILY 04/26/20 Sertraline HCl [Zoloft] 75 mg PO DAILY 04/26/20 Smoking Status: Never smoker Substance Use Type: Anxiety Medications, Sleep Aides Number of Fetus(es): 2 History Past Pregnancies: Past Pregnancies Delivery Date Name GA/ Weeks Outcome Route Wt Infant Sex Labor Length Anesthesia Delivery Location Provider FOB Expected Delivery Method: Spontaneous Vaginal Physical Exam Vitals: Vital Signs Temp Pulse Resp BP Pulse Ox 97.3 F L 74 16 129/61 H 98 05/22/20 05:40 05/22/20 05:40 05/22/20 05:40 05/22/20 05:40 05/22/20 05:40 Assessment/Plan All Active Problems (spontaneous vaginal delivery) (Acute) 36 weeks gestation of (Acute) Twin gestation in third trimester (Acute) Hyperemesis gravidarum (Acute) Gestational hypertension (Acute) This is a 30 year-old at 36w2d with di/di twin gestation admitted with SROM and in labor. - Routine intrapartum care - Vertex/vertex presentation. Discussed with pt risks of breech extraction. Also discussed possible need for version in labor or need for an emergent section. Discussed r/b/a to a vaginal delivery. The patient desired to proceed with a vaginal delivery. She understands the risks of version, breech extraction, and section - See [facility] records for ultrasound reports. Baby B with mild polyhydramnios and discordance in EFW 18% - GBS negative - Epidural for pain control - H/o gHTN: No evidence of pre-eclampsia. Will closely monitor BP's and for symptoms
[2020-05-22] MEDS: Oxytocin 30 units/NS 500 ml 30 UNITS/500 ML IV.SOLN 167 UNITS IV (08:05)
--- NOTE | 2020-05-22 08:10 | OP.PCM_ITS ---
Problem List (1) 36 weeks gestation of Status: Acute (2) Twin gestation in third trimester Status: Acute (3) Hyperemesis gravidarum Status: Acute (4) Gestational hypertension Status: Acute Report of Operation Date of Procedure: 05/22/20 Pre-Operative Diagnosis: 36 week gestation, di di twin gestation, labor at term, SROM Post-Operative Diagnosis: As above Surgery/Procedure Performed:: of baby A Description of Surgical Findings:: The patient was complete and pushing. Within 2 contractions she delivered the head of baby A without any force or delay. This was followed by the anterior shoulder, posterior shoulder, and body of baby A without any force or delay. Baby A was delivered atraumatically through a loose nuchal cord x1. Baby A was placed on maternal abdomen. The cord was clamped and cut with brief delay by FOB and the baby was handed off to the nursery staff. Cord blood was obtained. A vaginal exam was then performed noting baby B was in vertex presentation but ballotable. Through several contractions baby B then converted to transverse presentation with the head on the maternal left side. An ultrasound was performed to confirm FHT within normal limits and transverse presentation. Discussed risk, benefits, alternatives to a version with the patient and her significant other. Discussed risk of cord prolapse given polyhydramnios and need for emergent section. Discussed the option for a section. The patient gave verbal consent and desired to proceed with a version. I elevated the buttock, and my assistant professor sculpture was able to gently and with minimal effort rotate baby B's head into the pelvis. Baby B was easily verted to vertex presentation. This was confirmed with ultrasound, as well as vaginal exam. Membranes ruptured for clear fluid upon the successful version. Baby B was noted to be in right occiput posterior position. The ultrasound was used to assess FHR and it was noted to be bradycardic around 80-90 bpm. An FSE was placed to monitor the heart rate. The patient pushed for one contraction with no change in descent. FHT remained bradycardic. The cervix was 10/100/+2, Baby is ROP position. Root draining bladder. Discussed r/b of vacuum assisted delivery vs section with patient given bradycardia. Discussed risks of vacuum including but not limited to scalp laceration, hematoma, intracranial hemorrhage. Patient gave verbal consent for a vacuum and desired to proceed with VAVD. The vacuum was placed and insufflated for 2 contractions. It was exsufflated in between contractions. With gentle downward traction using the vacuum through 2 contractions, there was no change in descent and FHT remained bradycardic. Recommended an emergent section and patient agreeable to proceed. Please see other operative report/dictation. resident care assistant: Yvonne Padilla - Present for the entire delivery of baby A and baby B Type of Anesthesia:: Epidural Special Medications: None Specimen's removed: Placenta Drains: Root Estimated Blood Loss (mL): 800 Description of Procedure: See above for details. Grafts/Implants Used: None - Complications None - Admit VTE Documentation VTE Present on Admission: No VTE Mechan Device Prophylaxis: None VTE Pharm Prophylaxis ordered?: No Vaginal Delivery Maternal Presentation: Active Labor, Spontaneous Rupture of Membranes Surgery/ Procedure Performed: Spontaneous Vaginal Delivery - of baby A Type of Anesthesia: Epidural Presentation: Vertex Cord Vessel Description: 3 Vessels Nuchal Cord Compression: Without compression Cord Entanglement: Around neck x 1, loose Drain: Root to straight drain Infant A gender: Male Episiotomy Description: None Laceration: 2nd degree Medications given after delivery: IV Pitocin Complications: None
--- NOTE | 2020-05-22 08:32 | OP.PCM_ITS ---
Problem List (1) 36 weeks gestation of Status: Acute (2) Twin gestation in third trimester Status: Acute (3) Hyperemesis gravidarum Status: Acute (4) Gestational hypertension Status: Acute Report of Operation Date of Procedure: 05/22/20 Pre-Operative Diagnosis: 36 week gestation, di di twin gestation, distress of baby B Post-Operative Diagnosis: As above Surgery/Procedure Performed:: Stat PLTCS via pfannenstiel incision Description of Surgical Findings:: Baby B in vertex presentation with copious amounts of clear fluid noted upon entry into the uterus locksmith helper: Yvonne Padilla - She assisted with delivery of baby B Type of Anesthesia:: Epidural Special Medications: None Specimen's removed: Placenta Drains: Root Estimated Blood Loss (mL): 800 Description of Procedure: See other operative note for details. A Betadine prep was performed by the nursing staff. The patient was draped in usual fashion. Epidural anesthesia was found to be adequate. Using the scalpel a Pfannenstiel skin incision was made, and this was carried down to the underlying layer of fascia which was incised in the midline and extended laterally bluntly. The rectus muscles were in the midline. The peritoneum was entered bluntly. The incision was extended bluntly. A bladder blade was inserted. A low transverse incision was made on the uterus with a scalpel with good visualization of the bladder. Copious amounts of clear fluid were noted upon entry into the uterus. Baby B was noted to be in vertex presentation. The head was elevated out of the pelvis easily and brought to the hysterotomy. The head, shoulders, and body of were delivered without any force or delay. Baby B was delivered atraumatically. The cord was clamped and cut immediately. Baby B was handed off to the nursery staff. The placentas were delivered with manual extraction. Uterus was exteriorized. The bilateral ovaries and tubes were normal-appearing. Uterus was cleared of all clot and debris. An extension was noted along the right side of the hysterotomy. The hysterotomy was closed in a running locked fashion with Vicryl. A second imbricating layer was performed using Vicryl. Several additional [id number] sutures were placed for hemostasis. The uterus was then placed back into the abdomen. Several additional [id number] sutures were placed. Hemostasis was then noted. The peritoneum was closed in a running fashion with Vicryl. The fascia was closed with PDS in a running fashion. Subcutaneous space was irrigated and made hemostatic. The subcutaneous space was reapproximated using Vicryl. The skin was closed in a subcuticular fashion using Monocryl. Steri-Strips and dressing were placed. A vaginal exam was then performed noting a second-degree perineal laceration. This was repaired using 3-0 Vicryl in usual fashion. The fundus was firm and bleeding hemostatic. Vaginal sweep was performed. Instrument, sponge, needle counts were correct. Patient was taken to the recovery room in stable condition. Grafts/Implants Used: None - Complications None - Admit VTE Documentation VTE Present on Admission: No VTE Mechan Device Prophylaxis: None - Placed after delivery VTE Pharm Prophylaxis ordered?: No Delivery Classification: Stat Type of Anesthesia:: Epidural Indications for : Distress, Failure of Descent Drain: Root to straight drain Cord Entanglement: None Gender: Male Antibiotic Given: Ancef 2 grams IV x1 - given intra op Pt instructed on risks of surgery: Bleeding, Infection, Injury to surrounding structure(s) including bowel and bladder Complications: None - Admit VTE Documentation VTE Present on Admission: No VTE Pharm Prophylaxis ordered?: Yes
[2020-05-22] MEDS: Acetaminophen 500 MG Tablet 1000 MG PO ×3 (08:49→22:04)
--- NOTE | 2020-05-22 10:45 | NURSING ---
Dr Farrar notified at 0926 about pt blood pressure elevated. Dipika the nurse to relay message to her and have her call back. Dr Farrar did return nurse phone call at 0940 and informed of the elevated blood pressures 140's/80's and a 153/101 however repeated in other arm and was 129/84. Asymptomatic other connor. Ordered to continue to monitor blood pressure and inform doctor if any severe blood pressure taken.
[2020-05-22] MEDS: Lactated Ringers 1,000 ML 100 ML IV (11:26)
[2020-05-22] MEDS: Ketorolac 30 MG/ML Syringe IV ×2 (14:07→19:40)
[2020-05-22] MEDS: Cefazolin 1 GM/50 ML BAG IV (15:28)
[2020-05-22] MEDS: Labetalol 200 MG Tablet PO ×2 (16:17→23:58)
[2020-05-22] MEDS: 0.9% Saline Lock 10 ML Syringe IV (19:41)
[2020-05-22] MEDS: Enoxaparin 40 MG/0.4 ML Syringe SC (19:41)
[2020-05-22] MEDS: Sertraline 50 MG Tablet 75 MG PO (22:04)
[2020-05-23] MEDS: Ketorolac 30 MG/ML Syringe IV ×2 (01:10→08:15)
[2020-05-23 01:11] VITALS: BP 131/83; PULSE 93; RESP 18; O2SAT 97
[2020-05-23] MEDS: 0.9% Saline Lock 10 ML Syringe IV ×3 (01:11→12:41)
[2020-05-23] MEDS: Acetaminophen 500 MG Tablet 1000 MG PO ×4 (03:16→22:14)
[2020-05-23 03:45] VITALS: BP 120/70; PULSE 85; RESP 17; TEMP 36.5; O2SAT 97
[2020-05-23 05:47] LABS: Hematocrit 21.2 % (37-47); Hemoglobin 6.7 g/dL (12.0-15.0); Mean Corp Hgb Conc 31.6 g/dL (32-36); Mean Corpuscular Hgb 22.1 pg (27.0-32.0); Mean Platelet Vol. 10.2 fl (6.2-12.0); Platelet Count 216 K/mm3 (150-450); RBC Distribution Width CV 18.2 % (11.6-14.6); Red Blood Count 3.03 M/mm3 (4.2-5.4); White Blood Count 15.7 K/mm3 (4.4-11.0)
--- NOTE | 2020-05-23 07:38 | PN.OBGYN_ITS ---
Patient Problems: Active and Suspected Problems (Last Updated 05/22/20 @ 08:[address] Kiah Nguyen, DO) 36 weeks gestation of (Acute) Twin gestation in third trimester (Acute) Hyperemesis gravidarum (Acute) Gestational hypertension (Acute) Subjective: pain well controlled, average lochia, no N/V. Denies HERR or visual changes. Denies SOB/palpitations or lightheadedness when ambulating - Physical Exam Vitals/I&O's: Vital Signs Temp Pulse Resp BP Pulse Ox 97.7 F L 85 17 120/70 97 05/23/20 03:45 05/23/20 03:45 05/23/20 03:45 05/23/20 03:45 05/23/20 03:45 Oxygen Delivery Method Room Air Weight: 100.153 kg Body Mass Index (BMI) 35.6 Intake and Output for Last 24 Hours 05/21/20 05/22/20 05/23/20 23:59 23:59 23:59 Intake Total 4723.33 / 4723.33 Output Total 2350 / 2350 1000 / 1000 Balance 2373.33 / 2373.33 -1000 / -1000 General: Alert, Cooperative, No apparent distress Abdomen: Soft, Non Tender, Distended - moderately, sofly, Tender - appropriately Extremities: Edema - 2+, - - 2+ DTRs, one beat of clonus Skin: Incision - bandage clean, dry and intact Microbiology Past 72 Hours 05/22/20 02:40 Mucosa - Nose SARS-CoV-2 Antigen (Rapid) - Final Laboratory Results 05/23/20 05:29: WBC 15.7 H, RBC 3.03 L, Hgb 6.7 L, Hct 21.2 L, MCV 70.0 L, MCH 22.1 L, MCHC 31.6 L, RDW Std Deviation 46.0 H, RDW Coeff of Esa 18.2 H, Plt Count 216, MPV 10.2 Current Medications Acetaminophen (Acetaminophen 500 Mg Tablet) 1,000 mg PO Q6H [facility] Last Admin: 05/23/20 03:16 Dose: 1,000 mg Documented by: Bisacodyl (Bisacodyl 10 Mg Suppository) 10 mg RECTAL UD PRN PRN Reason: If no BM Enoxaparin Sodium (Enoxaparin 40 Mg/0.4 Ml Syringe) 40 mg SC DAILY@1930 [facility] Last Admin: 05/22/20 19:41 Dose: 40 mg Documented by: Hydrocortisone (Hydrocortisone 2.5% Crm) 1 applic TOPICAL TID PRN PRN; Protocol PRN Reason: Discomfort Ibuprofen (Ibuprofen 600 Mg Tablet) 600 mg PO Q6H [facility] Labetalol HCl (Labetalol 200 Mg Tablet) 200 mg PO BID [facility] Last Admin: 05/22/20 23:58 Dose: 200 mg Documented by: Methylergonovine Maleate (Methylergonovine 0.2 Mg/Ml Ampul) 0.2 mg IM X1 PRN PRN Reason: Uterine Atony Ondansetron HCl (Ondansetron 4 Mg/2 Ml Vial) 4 mg IV Q4H PRN PRN PRN Reason: Nausea Oxycodone HCl (Oxycodone 5 Mg Tablet) 5 - 10 mg PO Q4H PRN PRN PRN Reason: Pain Score 4-10 Prochlorperazine Edisylate (Prochlorperazine 10 Mg/2 Ml Vial) 10 mg IV Q6H PRN PRN PRN Reason: NAUSEA Senna/Docusate Sodium (Senna/Docusate Sodium 1 Tablet) 0 tablet PO DAILY [facility] Last Admin: 05/22/20 12:00 Dose: Not Given Documented by: Sertraline HCl (Sertraline 50 Mg Tablet) 75 mg PO DAILY [facility] Last Admin: 05/22/20 22:04 Dose: 75 mg Documented by: Simethicone (Simethicone 80 Mg Tablet) 80 mg PO PCHS PRN PRN Reason: Indigestion/stomach pain Sodium Chloride (0.9% Saline Lock 10 Ml Syringe) 5 - 15 ml IV UD PRN PRN Reason: SALINE FLUSH Last Admin: 05/23/20 01:11 Dose: 15 ml Documented by: Medical Necessity - Tobacco Use Smoking Status: Never smoker Assessment/Plan All Active Problems (Last Updated 05/22/20 @ 08:[address] Kiah Nguyen DO) (spontaneous vaginal delivery) (Acute) 36 weeks gestation of (Acute) Twin gestation in third trimester (Acute) Hyperemesis gravidarum (Acute) Gestational hypertension (Acute) POD#1 chronic antepartum anemia w/ superimposed acute blood loss anemia appropriate for blood loss during surgery. Tolerating it well recheck CBC at noon, if lower consider transfusion. IF stable and tolerating well likely IV fe - on at [facility], may be reverse transferred today, the other is in the room w/ her and doing well gest HTN, BP stable on labetalol
[2020-05-23 08:20] VITALS: BP 118/62; PULSE 88; RESP 16; TEMP 36.7; O2SAT 98
[2020-05-23] MEDS: Labetalol 200 MG Tablet PO ×2 (10:41→22:14)
[2020-05-23] MEDS: Senna/Docusate Sodium 1 Tablet PO (10:41)
[2020-05-23] MEDS: Sertraline 50 MG Tablet 75 MG PO (10:41)
[2020-05-23 11:43] LABS: Absolute Lymphocyte Count 1.91 X10^3/uL (0.83-4.51); Absolute Neutrophil Count 12.5 X10^3/uL (2.0-7.7); Basophil# 0.03 X10^3/uL; Basophil% 0.2 % (0-1); Eosinophil# 0.57 X10^3/uL; Eosinophils% 3.5 % (0-5); Hematocrit 21.6 % (37-47); Hemoglobin 6.7 g/dL (12.0-15.0); Lymphocyte # 1.91 X10^3/ul (4.0); Lymphocyte % 11.8 % (19-41); Mean Corpuscular Hgb 21.8 pg (27.0-32.0); Mean Corpuscular Volume 70.1 fL (81-99); Mean Platelet Vol. 10.6 fl (6.2-12.0); Monocyte% 5.6 % (0-10); NRBC Flagged by Analyzer 0 % (0-5); Neutrophil # 12.52 X10^3/uL (2.7-7.7); Neutrophil % 77.7 % (47-70); Platelet Count 251 K/mm3 (150-450); RBC Distribution Width CV 18.4 % (11.6-14.6); RBC Distribution Width SD 46.5 fl (35.1-43.9); Red Blood Count 3.08 M/mm3 (4.2-5.4); White Blood Count 16.1 K/mm3 (4.4-11.0)
[2020-05-23] MEDS: DiphenhydrAMINE 50 MG/ML Syringe 25 MG IV (12:39)
[2020-05-23] MEDS: Ibuprofen 600 MG Tablet PO ×2 (13:35→19:01)
[2020-05-23] MEDS: Sodium Ferric Gluconat 250 MG in 0.9% Normal Saline 250 ML 135 MG IV (13:35)
[2020-05-23 13:57] VITALS: BP 122/64; PULSE 70; RESP 16; TEMP 36.7; O2SAT 97
[2020-05-23] MEDS: oxyCODONE 5 MG Tablet PO ×2 (15:37→20:05)
[2020-05-23] MEDS: Enoxaparin 40 MG/0.4 ML Syringe SC (19:01)
[2020-05-23 19:55] VITALS: BP 132/69; PULSE 96; RESP 16; TEMP 36.7
--- NOTE | 2020-05-23 23:41 | NURSING ---
Report received from Dana Hinton RN. This RN will assume care of this patient and her at this time.
[2020-05-24] VITALS (11 sets, daily range): BP systolic 119–144; BP diastolic 57–88; PULSE 86–97; RESP 16–20; TEMP 36.2–36.9; O2SAT 97
[2020-05-24] MEDS: Ibuprofen 600 MG Tablet PO ×4 (00:59→18:24)
[2020-05-24] MEDS: oxyCODONE 5 MG Tablet PO ×3 (02:24→20:03)
[2020-05-24] MEDS: Acetaminophen 500 MG Tablet 1000 MG PO ×3 (04:22→18:26)
[2020-05-24] MEDS: 0.9% Saline Lock 10 ML Syringe IV (05:27)
[2020-05-24 05:37] LABS: Hematocrit 21.7 % (37-47); Hemoglobin 6.6 g/dL (12.0-15.0); Mean Corp Hgb Conc 30.4 g/dL (32-36); Mean Corpuscular Hgb 21.5 pg (27.0-32.0); Mean Corpuscular Volume 70.7 fL (81-99); Mean Platelet Vol. 10.4 fl (6.2-12.0); Platelet Count 272 K/mm3 (150-450); RBC Distribution Width CV 18.4 % (11.6-14.6); RBC Distribution Width SD 47.3 fl (35.1-43.9); Red Blood Count 3.07 M/mm3 (4.2-5.4); White Blood Count 18.2 K/mm3 (4.4-11.0)
--- NOTE | 2020-05-24 08:50 | PN.OBGYN_ITS ---
Patient Problems: Active and Suspected Problems (Last Updated 05/22/20 @ 08:[address] Kiah Nguyen, DO) 36 weeks gestation of (Acute) Twin gestation in third trimester (Acute) Hyperemesis gravidarum (Acute) Gestational hypertension (Acute) Subjective: Patient seen at bedside. Sleeping sound prior to visit. and pumping for other in SCN. Ambulating and voiding without difficulty. Passing flatus. Lochia is minimal. Received IV iron yesterday for decreased HGB. Denies any feelings of dizziness, SOB, or chest pain. Reports just feeling tired. Pain is controlled with Motrin, Tylenol and Oxy-ir. Objective: Dressing is dry and intact Fundus is firm 1 below U - Physical Exam Vitals/I&O's: Vital Signs Temp Pulse Resp BP Pulse Ox 97.9 F 89 16 135/73 H 97 05/24/20 01:00 05/24/20 01:00 05/24/20 01:00 05/24/20 01:00 05/23/20 13:57 Oxygen Delivery Method Room Air Weight: 220 lb 12.8 oz Body Mass Index (BMI) 35.6 Intake and Output for Last 24 Hours 05/22/20 05/23/20 05/24/20 23:59 23:59 23:59 Intake Total 4723.33 / 4723.33 270 / 270 Output Total 2350 / 2350 1000 / 1000 Balance 2373.33 / 2373.33 -730 / -730 General: Alert, Oriented x3, Cooperative, No apparent distress HEENT: Atraumatic Neck: Supple Lungs: Normal air movement Cardiovascular: Regular rate Abdomen: Soft, Passing Flatus Extremities: Capillary Refill Less than 3 Seconds, No Calf Tenderness Skin: - - Pale Neurological: Cranial nerves II-XII grossly intact Psych/Mental Status: Normal Affect Microbiology Past 72 Hours 05/22/20 02:40 Mucosa - Nose SARS-CoV-2 Antigen (Rapid) - Final Laboratory Results 05/23/20 11:30: WBC 16.1 H, RBC 3.08 L, Hgb 6.7 L, Hct 21.6 L, MCV 70.1 L, MCH 21.8 L, MCHC 31.0 L, RDW Std Deviation 46.5 H, RDW Coeff of Esa 18.4 H, Plt Count 251, MPV 10.6, Immature Gran % (Auto) 1.200 H, Neut % (Auto) 77.7 H, Lymph % (Auto) 11.8 L, [place] % (Auto) 5.6, Eos % (Auto) 3.5, Baso % (Auto) 0.2, Absolute Neuts (auto) 12.5 H, Absolute Lymphs (auto) 1.91, Nucleated RBC % 0 05/24/20 05:30: WBC 18.2 H, RBC 3.07 L, Hgb 6.6 L, Hct 21.7 L, MCV 70.7 L, MCH 21.5 L, MCHC 30.4 L, RDW Std Deviation 47.3 H, RDW Coeff of Esa 18.4 H, Plt Count 272, MPV 10.4 Current Medications Acetaminophen (Acetaminophen 500 Mg Tablet) 1,000 mg PO Q6 [facility] Bisacodyl (Bisacodyl 10 Mg Suppository) 10 mg RECTAL UD PRN PRN Reason: If no BM Enoxaparin Sodium (Enoxaparin 40 Mg/0.4 Ml Syringe) 40 mg SC DAILY@1930 [facility] Last Admin: 05/23/20 19:01 Dose: 40 mg Documented by: Hydrocortisone (Hydrocortisone 2.5% Crm) 1 applic TOPICAL TID PRN PRN; Protocol PRN Reason: Discomfort Ibuprofen (Ibuprofen 600 Mg Tablet) 600 mg PO Q6 [facility] Last Admin: 05/24/20 08:36 Dose: 600 mg Documented by: Labetalol HCl (Labetalol 200 Mg Tablet) 200 mg PO BID [facility] Last Admin: 05/23/20 22:14 Dose: 200 mg Documented by: Methylergonovine Maleate (Methylergonovine 0.2 Mg/Ml Ampul) 0.2 mg IM X1 PRN PRN Reason: Uterine Atony Ondansetron HCl (Ondansetron 4 Mg/2 Ml Vial) 4 mg IV Q4H PRN PRN PRN Reason: Nausea Oxycodone HCl (Oxycodone 5 Mg Tablet) 5 - 10 mg PO Q4H PRN PRN PRN Reason: Pain Score 4-10 Last Admin: 05/24/20 08:40 Dose: 5 mg Documented by: Prochlorperazine Edisylate (Prochlorperazine 10 Mg/2 Ml Vial) 10 mg IV Q6H PRN PRN PRN Reason: NAUSEA Senna/Docusate Sodium (Senna/Docusate Sodium 1 Tablet) 0 tablet PO DAILY [facility] Last Admin: 05/23/20 10:41 Dose: 1 tablet Documented by: Sertraline HCl (Sertraline 50 Mg Tablet) 75 mg PO DAILY [facility] Last Admin: 05/23/20 10:41 Dose: 75 mg Documented by: Simethicone (Simethicone 80 Mg Tablet) 80 mg PO PCHS PRN PRN Reason: Indigestion/stomach pain Sodium Chloride (0.9% Saline Lock 10 Ml Syringe) 5 - 15 ml IV UD PRN PRN Reason: SALINE FLUSH Last Admin: 05/24/20 05:27 Dose: 10 ml Documented by: Medical Necessity - Tobacco Use Smoking Status: Never smoker Assessment/Plan All Active Problems (Last Updated 05/22/20 @ 08:[address] Kiah Nguyen, DO) (spontaneous vaginal delivery) (Acute) 36 weeks gestation of (Acute) Twin gestation in third trimester (Acute) Hyperemesis gravidarum (Acute) Gestational hypertension (Acute) PPD #1 baby A POD #1 Primary C/S baby b Pain management BP stable on PO labetalol Routine care support Patient desires to go [facility]OT[facility] status once discharged home Dr. Farrar updated on plan of care
[2020-05-24] MEDS: Sertraline 50 MG Tablet 75 MG PO (10:44)
[2020-05-24] MEDS: Labetalol 200 MG Tablet PO ×2 (10:45→22:34)
[2020-05-24] MEDS: Senna/Docusate Sodium 1 Tablet PO (10:45)
[2020-05-24 14:08] LABS: Absolute Lymphocyte Count 2.12 X10^3/uL (0.83-4.51); Absolute Neutrophil Count 10.9 X10^3/uL (2.0-7.7); Basophil# 0.05 X10^3/uL; Basophil% 0.3 % (0-1); Eosinophil# 0.94 X10^3/uL; Eosinophils% 6.2 % (0-5); Hematocrit 20.6 % (37-47); Hemoglobin 6.3 g/dL (12.0-15.0); Lymphocyte # 2.12 X10^3/ul (4.0); Lymphocyte % 13.9 % (19-41); Mean Corp Hgb Conc 30.6 g/dL (32-36); Mean Corpuscular Hgb 21.7 pg (27.0-32.0); Mean Platelet Vol. 10.7 fl (6.2-12.0); Monocyte# 0.82 X10^3/uL; Monocyte% 5.4 % (0-10); NRBC Flagged by Analyzer 0.1 % (0-5); Neutrophil # 10.94 X10^3/uL (2.7-7.7); Neutrophil % 71.5 % (47-70); Platelet Count 282 K/mm3 (150-450); RBC Distribution Width CV 18.4 % (11.6-14.6); RBC Distribution Width SD 47.1 fl (35.1-43.9); White Blood Count 15.3 K/mm3 (4.4-11.0)
--- NOTE | 2020-05-24 14:30 | PCM.PN.BLA ---
Progress Note Patient had repeat CBC drawn at 1400. RN reported a decreased value from 6.6 to 6.3. Patient remains asymptomatic, no SOB, dizziness or chest pain. Discussed above with Dr. Farrar and decision made to infuse patient with 1 liter of blood due to decreasing hgb after IV iron infusion Repeat CBC tomorrow morning STROKE Vital Signs/Narrative: Vital Signs Temp Pulse Resp BP BP Pulse Ox 05/24/20 20:08 98.2 F 97 18 137/77 H 97 05/24/20 18:27 97.8 F 90 18 144/88 H 05/24/20 17:27 97.9 F 86 20 H 143/87 H
[2020-05-24] MEDS: Enoxaparin 40 MG/0.4 ML Syringe SC (20:04)
[2020-05-25] VITALS (7 sets, daily range): BP systolic 125–156; BP diastolic 65–94; PULSE 69–89; RESP 16–18; TEMP 36.2–36.7; O2SAT 96–100
[2020-05-25] MEDS: Ibuprofen 600 MG Tablet PO ×4 (00:12→18:22)
[2020-05-25] MEDS: Acetaminophen 500 MG Tablet 1000 MG PO ×4 (00:13→18:58)
[2020-05-25 04:58] LABS: Absolute Lymphocyte Count 2.47 X10^3/uL (0.83-4.51); Absolute Neutrophil Count 8.9 X10^3/uL (2.0-7.7); Basophil# 0.07 X10^3/uL; Basophil% 0.5 % (0-1); Eosinophil# 1.03 X10^3/uL; Eosinophils% 7.6 % (0-5); Hematocrit 21.5 % (37-47); Hemoglobin 6.6 g/dL (12.0-15.0); Lymphocyte # 2.47 X10^3/ul (4.0); Lymphocyte % 18.1 % (19-41); Mean Corp Hgb Conc 30.7 g/dL (32-36); Mean Corpuscular Hgb 22.3 pg (27.0-32.0); Mean Corpuscular Volume 72.6 fL (81-99); Monocyte# 0.77 X10^3/uL; Monocyte% 5.6 % (0-10); NRBC Flagged by Analyzer 0.3 % (0-5); Neutrophil % 65.3 % (47-70); Platelet Count 246 K/mm3 (150-450); RBC Distribution Width CV 18.8 % (11.6-14.6); RBC Distribution Width SD 49.5 fl (35.1-43.9); Red Blood Count 2.96 M/mm3 (4.2-5.4); White Blood Count 13.6 K/mm3 (4.4-11.0)
[2020-05-25] MEDS: oxyCODONE 5 MG Tablet PO (06:13)
--- NOTE | 2020-05-25 08:27 | PCM.PN.OB ---
Patient Problems: Active and Suspected Problems (Last Updated 05/22/20 @ 08:[address] Kiah Nguyen, DO) 36 weeks gestation of (Acute) Twin gestation in third trimester (Acute) Hyperemesis gravidarum (Acute) Gestational hypertension (Acute) Subjective: Is doing well this morning. Denies headache, vision changes, epigastric pain. No lightheadedness or dizziness or shortness of breath. Ambulating voiding without difficulty. Denies chest pain or shortness of breath. Pain is well controlled. Rodolfo regular diet without nausea or vomiting. - Physical Exam Vitals/I&O's: Vital Signs Temp Pulse Resp BP Pulse Ox 98.0 F 76 16 140/87 H 96 05/25/20 08:01 05/25/20 08:01 05/25/20 08:01 05/25/20 08:01 05/25/20 08:01 Oxygen Delivery Method Room Air Weight: 220 lb 12.8 oz Body Mass Index (BMI) 35.6 Intake and Output for Last 24 Hours 05/23/20 05/24/20 05/25/20 23:59 23:59 23:59 Intake Total 270 / 270 500 / 500 Output Total 1000 / 1000 Balance -730 / -730 500 / 500 General: Alert, No apparent distress HEENT: Atraumatic Abdomen: Soft, Non Tender, Non-Distended - FF@U, dressing c/d/i, - Extremities: No Calf Tenderness, Edema Skin: No rashes Neurological: Neuro grossly intact Psych/Mental Status: Normal Affect, Appropriate Laboratory Results 05/22/20 02:20: Crossmatch See Detail 05/24/20 14:00: WBC 15.3 H, RBC 2.90 L, Hgb 6.3 L, Hct 20.6 L, MCV 71.0 L, MCH 21.7 L, MCHC 30.6 L, RDW Std Deviation 47.1 H, RDW Coeff of Esa 18.4 H, Plt Count 282, MPV 10.7, Immature Gran % (Auto) 2.700 H, Neut % (Auto) 71.5 H, Lymph % (Auto) 13.9 L, [place] % (Auto) 5.4, Eos % (Auto) 6.2 H, Baso % (Auto) 0.3, Absolute Neuts (auto) 10.9 H, Absolute Lymphs (auto) 2.12, Nucleated RBC % 0.1 05/25/20 04:50: WBC 13.6 H, RBC 2.96 L, Hgb 6.6 L, Hct 21.5 L, MCV 72.6 L, MCH 22.3 L, MCHC 30.7 L, RDW Std Deviation 49.5 H, RDW Coeff of Esa 18.8 H, Plt Count 246, MPV 10.0, Immature Gran % (Auto) 2.900 H, Neut % (Auto) 65.3, Lymph % (Auto) 18.1 L, [place] % (Auto) 5.6, Eos % (Auto) 7.6 H, Baso % (Auto) 0.5, Absolute Neuts (auto) 8.9 H, Absolute Lymphs (auto) 2.47, Nucleated RBC % 0.3 Current Medications Acetaminophen (Acetaminophen 500 Mg Tablet) 1,000 mg PO Q6 [facility] Last Admin: 05/25/20 06:13 Dose: 1,000 mg Documented by: Bisacodyl (Bisacodyl 10 Mg Suppository) 10 mg RECTAL UD PRN PRN Reason: If no BM Enoxaparin Sodium (Enoxaparin 40 Mg/0.4 Ml Syringe) 40 mg SC DAILY@1930 [facility] Last Admin: 05/24/20 20:04 Dose: 40 mg Documented by: Hydrocortisone (Hydrocortisone 2.5% Crm) 1 applic TOPICAL TID PRN PRN; Protocol PRN Reason: Discomfort Ibuprofen (Ibuprofen 600 Mg Tablet) 600 mg PO Q6 [facility] Last Admin: 05/25/20 06:14 Dose: 600 mg Documented by: Labetalol HCl (Labetalol 200 Mg Tablet) 200 mg PO BID [facility] Last Admin: 05/24/20 22:34 Dose: 200 mg Documented by: Methylergonovine Maleate (Methylergonovine 0.2 Mg/Ml Ampul) 0.2 mg IM X1 PRN PRN Reason: Uterine Atony Ondansetron HCl (Ondansetron 4 Mg/2 Ml Vial) 4 mg IV Q4H PRN PRN PRN Reason: Nausea Oxycodone HCl (Oxycodone 5 Mg Tablet) 5 - 10 mg PO Q4H PRN PRN PRN Reason: Pain Score 4-10 Last Admin: 05/25/20 06:13 Dose: 5 mg Documented by: Prochlorperazine Edisylate (Prochlorperazine 10 Mg/2 Ml Vial) 10 mg IV Q6H PRN PRN PRN Reason: NAUSEA Senna/Docusate Sodium (Senna/Docusate Sodium 1 Tablet) 0 tablet PO DAILY [facility] Last Admin: 05/24/20 10:45 Dose: 1 tablet Documented by: Sertraline HCl (Sertraline 50 Mg Tablet) 75 mg PO DAILY [facility] Last Admin: 05/24/20 10:44 Dose: 75 mg Documented by: Simethicone (Simethicone 80 Mg Tablet) 80 mg PO PCHS PRN PRN Reason: Indigestion/stomach pain Sodium Chloride (0.9% Saline Lock 10 Ml Syringe) 5 - 15 ml IV UD PRN PRN Reason: SALINE FLUSH Last Admin: 05/24/20 05:27 Dose: 10 ml Documented by: Medical Necessity - Tobacco Use Smoking Status: Never smoker Assessment/Plan All Active Problems (Last Updated 05/22/20 @ 08:[address] Kiah Nguyen, DO) (spontaneous vaginal delivery) (Acute) 36 weeks gestation of (Acute) Twin gestation in third trimester (Acute) Hyperemesis gravidarum (Acute) Gestational hypertension (Acute) POD#3 s/p of twin A, and stat C/S of twin B - Pain well controlled - gHTN: BP's WNL on Labetalol currently. Continue to monitor today. Discussed with pt may need to increased Labetalol today or tomorrow if BP's trend up. No signs or symptoms of pre-e - chronic anemia with superimposed acute blood loss: S/p IV iron infusion x 1 and s/p 1 unit PRBC's. Hgb stable this morning. Pt feels well. No symptoms of anemia, and pain is well controlled. Abd exam is non-acute. Will recheck CBC at noon today and in AM. Discussed iron supplement at home - going well with both boys - Dispo: Likely d/c home tomorrow
[2020-05-25] MEDS: Labetalol 200 MG Tablet PO (09:40)
[2020-05-25] MEDS: Sertraline 50 MG Tablet 75 MG PO (09:40)
[2020-05-25] MEDS: Senna/Docusate Sodium 1 Tablet PO (09:40)
--- NOTE | 2020-05-25 10:40 | CASEMGMT ---
Social Work Labor and Delivery Unit Social work assessment completed due to referral from coal handling supervisor regarding maternal history of anxiety, depression, and one of the twins transferring to [facility]. Full assessment is documented in the chart of Baby Pedro Luis Colby, which is linked directly to this delivery record. Baby was transferred back to the [facility], so MOB did get to spend time with both babies. MOB receptive to social work visit, and accepted resources provided. No other services requested or indicted. -JOSE Alcazar, QUALITY ASSURANCE ASSESSOR
[2020-05-25 12:41] LABS: Hematocrit 22.9 % (37-47); Hemoglobin 7.1 g/dL (12.0-15.0); Mean Corpuscular Hgb 22.5 pg (27.0-32.0); Mean Corpuscular Volume 72.5 fL (81-99); Mean Platelet Vol. 10.5 fl (6.2-12.0); Platelet Count 294 K/mm3 (150-450); RBC Distribution Width CV 19.1 % (11.6-14.6); RBC Distribution Width SD 49.8 fl (35.1-43.9); Red Blood Count 3.16 M/mm3 (4.2-5.4)
[2020-05-25] MEDS: 0.9% Saline Lock 10 ML Syringe IV (18:35)
[2020-05-25] MEDS: Enoxaparin 40 MG/0.4 ML Syringe SC (21:00)
[2020-05-25] MEDS: Labetalol 200 MG Tablet 300 MG PO (22:29)
[2020-05-26 00:20] VITALS: BP 130/80; PULSE 68; RESP 16; TEMP 36.2; O2SAT 98
[2020-05-26] MEDS: Acetaminophen 500 MG Tablet 1000 MG PO ×2 (00:21→06:34)
[2020-05-26] MEDS: Ibuprofen 600 MG Tablet PO ×2 (00:22→06:34)
[2020-05-26 03:50] VITALS: BP 138/84; PULSE 86; RESP 16; TEMP 36.1; O2SAT 95
[2020-05-26 06:12] LABS: Hematocrit 23.7 % (37-47); Hemoglobin 7.2 g/dL (12.0-15.0); Mean Corp Hgb Conc 30.4 g/dL (32-36); Mean Corpuscular Hgb 22.4 pg (27.0-32.0); Mean Corpuscular Volume 73.8 fL (81-99); Platelet Count 315 K/mm3 (150-450); RBC Distribution Width CV 19.8 % (11.6-14.6); RBC Distribution Width SD 50.6 fl (35.1-43.9); Red Blood Count 3.21 M/mm3 (4.2-5.4); White Blood Count 12.8 K/mm3 (4.4-11.0)
--- NOTE | 2020-05-26 08:18 | PCM.PN.OB ---
Patient Problems: Active and Suspected Problems (Last Updated 05/22/20 @ 08:[address] Kiah Nguyen, DO) 36 weeks gestation of (Acute) Twin gestation in third trimester (Acute) Hyperemesis gravidarum (Acute) Gestational hypertension (Acute) Subjective: Patient is doing well. Denies headaches, vision changes, epigastric pain. Pain is well controlled. Ambulating & voiding without difficulty. Denies lightheadedness, dizziness, chest pain, shortness of breath. Normal lochia. Breast-feeding is going well. She has no complaints. She desires to go home today. - Physical Exam Vitals/I&O's: Vital Signs Temp Pulse Resp BP Pulse Ox 97.0 F L 86 16 138/84 H 95 05/26/20 03:50 05/26/20 03:50 05/26/20 03:50 05/26/20 03:50 05/26/20 03:50 Oxygen Delivery Method Room Air Weight: 220 lb 12.8 oz Body Mass Index (BMI) 35.6 Intake and Output for Last 24 Hours 05/24/20 05/25/20 05/26/20 23:59 23:59 23:59 Intake Total 500 / 500 Balance 500 / 500 General: Alert, No apparent distress HEENT: Atraumatic Abdomen: Non-Distended Extremities: No edema Skin: No rashes Neurological: Neuro grossly intact Psych/Mental Status: Normal Affect, Appropriate Laboratory Results 05/25/20 12:25: WBC 14.0 H, RBC 3.16 L, Hgb 7.1 L, Hct 22.9 L, MCV 72.5 L, MCH 22.5 L, MCHC 31.0 L, RDW Std Deviation 49.8 H, RDW Coeff of Esa 19.1 H, Plt Count 294, MPV 10.5 05/26/20 06:00: WBC 12.8 H, RBC 3.21 L, Hgb 7.2 L, Hct 23.7 L, MCV 73.8 L, MCH 22.4 L, MCHC 30.4 L, RDW Std Deviation 50.6 H, RDW Coeff of Esa 19.8 H, Plt Count 315, MPV 10.0 Current Medications Acetaminophen (Acetaminophen 500 Mg Tablet) 1,000 mg PO Q6 CHANG Last Admin: 05/26/20 06:34 Dose: 1,000 mg Documented by: Bisacodyl (Bisacodyl 10 Mg Suppository) 10 mg RECTAL UD PRN PRN Reason: If no BM Enoxaparin Sodium (Enoxaparin 40 Mg/0.4 Ml Syringe) 40 mg SC DAILY@1930 [facility] Last Admin: 05/25/20 21:00 Dose: 40 mg Documented by: Hydrocortisone (Hydrocortisone 2.5% Crm) 1 applic TOPICAL TID PRN PRN; Protocol PRN Reason: Discomfort Ibuprofen (Ibuprofen 600 Mg Tablet) 600 mg PO Q6 [facility] Last Admin: 05/26/20 06:34 Dose: 600 mg Documented by: Labetalol HCl (Labetalol 200 Mg Tablet) 300 mg PO BID [facility] Last Admin: 05/25/20 22:29 Dose: 300 mg Documented by: Methylergonovine Maleate (Methylergonovine 0.2 Mg/Ml Ampul) 0.2 mg IM X1 PRN PRN Reason: Uterine Atony Ondansetron HCl (Ondansetron 4 Mg/2 Ml Vial) 4 mg IV Q4H PRN PRN PRN Reason: Nausea Oxycodone HCl (Oxycodone 5 Mg Tablet) 5 - 10 mg PO Q4H PRN PRN PRN Reason: Pain Score 4-10 Last Admin: 05/25/20 06:13 Dose: 5 mg Documented by: Prochlorperazine Edisylate (Prochlorperazine 10 Mg/2 Ml Vial) 10 mg IV Q6H PRN PRN PRN Reason: NAUSEA Senna/Docusate Sodium (Senna/Docusate Sodium 1 Tablet) 0 tablet PO DAILY [facility] Last Admin: 05/25/20 09:40 Dose: 2 tablet Documented by: Sertraline HCl (Sertraline 50 Mg Tablet) 75 mg PO DAILY [facility] Last Admin: 05/25/20 09:40 Dose: 75 mg Documented by: Simethicone (Simethicone 80 Mg Tablet) 80 mg PO PCHS PRN PRN Reason: Indigestion/stomach pain Last Admin: 05/25/20 15:00 Dose: 80 mg Documented by: Sodium Chloride (0.9% Saline Lock 10 Ml Syringe) 5 - 15 ml IV UD PRN PRN Reason: SALINE FLUSH Last Admin: 05/25/20 18:35 Dose: 10 ml Documented by: Medical Necessity - Tobacco Use Smoking Status: Never smoker Assessment/Plan All Active Problems (Last Updated 05/22/20 @ 08:[address] Kiah Nguyen, DO) (spontaneous vaginal delivery) (Acute) 36 weeks gestation of (Acute) Twin gestation in third trimester (Acute) Hyperemesis gravidarum (Acute) Gestational hypertension (Acute) The patient is day 1 from a vaginal delivery. She is doing well. Labs reviewed. Vital signs are stable. Currently pumping and supplementing with formula. She desires to go home today. Discharge instructions reviewed.
[2020-05-26 08:30] VITALS: BP 131/75; PULSE 77; RESP 16; TEMP 36.3; O2SAT 97
--- NOTE | 2020-05-26 08:30 | DCINST_ITS ---
Discharge Diet: No Restrictions Discharge Activity: May not drive while taking narcotic pain medications. - May drive once you feel strong enough to slam on the break or turn a steering wheel sharply, May Shower May resume sexual activity in: 6 weeks Ice area for (Minutes): 15 Weight Bearing Status: Weight bearing as tolerated Lifting Restrictions: Nothing heavier than baby Call your doctor if your incision/area has: Sudden Increased Bleeding, Increased Pain/ Swelling, Increased Redness, Foul Smelling Discharge, Swelling at the incision site Call your doctor if you observe: Fever of 101 or Higher, Change in Color, Inability to urinate, Inability to have a bowel movement, Using more than one pad per hour, Shortness of breath, Dizziness, Fainting spells, Swelling in the ankles, Chest pain, Increased palpitations (irregular heartbeat), Calf discomfort, Uncontrolled pain Suture Line Care: Avoid Pulling/Pushing, Avoid Pinching/Bending Remove Dressing in (days):: 3 - Leave on for at least 7 days. Can remove in office. Otherwise you can remove it while in the shower Cleanse incision/area with: Soap & Water Additional Instructions: If you experience any of the following, contact your healthcare provider. * Bleeding that soaks a pad every hour for 2 hours * Fever 100.4 or higher * Unrelieved incision or abdominal pain * Swelling, redness, discharge or bleeding from your incision or episiotomy site * Your incision begins to separate * Problems urinating (including inability to urinate or burning while urinating). * Visual changes * Severe headache * Flu-like symptoms * Pain or redness in one of both of your breasts * Pain, warmth, tenderness or swelling in your legs, especially the calf area * Frequent nausea and vomiting * Symptoms of depression or anxiety If you experience any of the following, call 911 or go to the nearest Emergency Room. * Chest pain * Problems breathing * Seizure activity * Partial or complete paralysis of a body part, slurred speech, weakness or drooping of the face, or a sudden inability to walk or hold your balance Allergies/Adverse Reactions: Allergies Penicillins [PCN] Allergy (Verified 05/22/20 01:33) Rash Medications to take at Discharge Doxylamine Succinate [Unisom Sleep Aid] 25 mg PO DAILY 07/24/17 Omeprazole Magnesium [Prilosec Otc] 20 mg PO DAILY 07/24/17 Vits [Prenatabs FA ] 1 tab PO DAILY 08/27/17 Aspirin, Baby 81 mg PO DAILY 04/26/20 Ondansetron [Zofran] 32 mg SQ DAILY 04/26/20 Sertraline HCl [Zoloft] 75 mg PO DAILY 04/26/20 Labetalol [Trandate] 100 mg PO BID 05/22/20 Docusate Sodium [Colace] 100 mg PO BID PRN PRN #30 cap 05/26/20 Ferrous Sulfate 325 mg PO QODAY #30 tab 05/26/20 Ibuprofen [Motrin] 600 mg PO Q6H PRN PRN #30 tab 05/26/20 Labetalol [Trandate (Beta Gideon)] 300 mg PO BID #180 tab 05/26/20 Oxycodone HCl/Acetaminophen [Percocet 5/325] 1 tablet PO Q6H PRN PRN 7 Days #15 tablet 05/26/20 The following prescriptions were given: Docusate Sodium [Colace] 100 mg PO BID PRN PRN #30 cap PRN Reason: Constipation Transmission Status: Pending to [address] Ferrous Sulfate 325 mg PO QODAY #30 tab Transmission Status: Pending to [address] Ibuprofen [Motrin] 600 mg PO Q6H PRN PRN #30 tab PRN Reason: Pain Score 4-10 Transmission Status: Pending to [address] Oxycodone HCl/Acetaminophen [Percocet 5/325] 1 tablet PO Q6H PRN PRN 7 Days #15 tablet PRN Reason: Pain Score 6-10 Transmission Status: Received by [address] Labetalol [Trandate (Beta Gideon)] 300 mg PO BID #180 tab Transmission Status: Pending to [address] Follow-Up: Call to make an appointment with your doctor for an incision check in 1-2 weeks. You will also need a 6 week post- follow up appointment. Test results from this visit will be discussed in further detail at your follow- up appointment, if applicable. When: 1 week for incision and blood pressure check. 6 weeks for visit Primary Care Physician: Rossi Naranjo PRINT FINISHING WORKER, PRINT FINISHING WORKER-C [Primary Care Provider] -
[2020-05-26] MEDS: Senna/Docusate Sodium 1 Tablet PO (10:32)
[2020-05-26] MEDS: Sertraline 50 MG Tablet 75 MG PO (10:32)
[2020-05-26] MEDS: Labetalol 200 MG Tablet 300 MG PO (10:32)
--- NOTE | 2020-05-31 14:35 | PCM.DC.SUM ---
Discharge Date and Diagnosis - Problem List Patient Problems: Active and Suspected Problems (Last Updated 05/22/20 @ 08:[address] Kiah Nguyen DO) 36 weeks gestation of (Acute) Twin gestation in third trimester (Acute) Hyperemesis gravidarum (Acute) Gestational hypertension (Acute) Date of Admission: 05/22/20 Date of Discharge: 05/26/20 - Primary Discharge Diagnosis Acute Problems: Active Problems (Last Updated 05/22/20 @ 08:[address] Kiah Nguyen DO) 36 weeks gestation of (Acute) Twin gestation in third trimester (Acute) Hyperemesis gravidarum (Acute) Gestational hypertension (Acute) Hospital Course and Treatment Operations: - - and PLTCS Summary of Care Provided: The patient is a 30 year old F [] who was admitted with di-di twins at 36 weeks gestation in labor. She had gestational hypertension in the . She had a spontaneous vaginal delivery of twin A. She then had an external cephalic version of twin B followed by an emergent section for bradycardia. Please see operative notes for details. The patient did well postoperatively. She was continued on labetalol for elevated blood pressures without evidence of preeclampsia. She was ambulating, voiding, tolerating regular diet, and pain was well controlled. She was discharged to home on postoperative day 4 in good condition. She was instructed to follow-up in the office. Patient Problems: Active and Suspected Problems (Last Updated 05/22/20 @ 08:[address] Kiah Nguyen DO) 36 weeks gestation of (Acute) Twin gestation in third trimester (Acute) Hyperemesis gravidarum (Acute) Gestational hypertension (Acute) - Physical Exam Vitals/I&O's: Vital Signs Temp Pulse Resp BP Pulse Ox 97.3 F L 77 16 131/75 H 97 05/26/20 08:30 05/26/20 08:30 05/26/20 08:30 05/26/20 08:30 05/26/20 08:30 Oxygen Delivery Method Room Air Weight: 220 lb 12.8 oz Body Mass Index (BMI) 35.6 Discharge Diet: No Restrictions Discharge Activity: May not drive while taking narcotic pain medications. - May drive once you feel strong enough to slam on the break or turn a steering wheel sharply, May Shower May resume sexual activity in: 6 weeks Ice area for (Minutes): 15 Weight Bearing Status: Weight bearing as tolerated Call your doctor if your incision/area has: Sudden Increased Bleeding, Increased Pain/ Swelling, Increased Redness, Foul Smelling Discharge, Swelling at the incision site Call your doctor if you observe: Fever of 101 or Higher, Change in Color, Inability to urinate, Inability to have a bowel movement, Using more than one pad per hour, Shortness of breath, Dizziness, Fainting spells, Swelling in the ankles, Chest pain, Increased palpitations (irregular heartbeat), Calf discomfort, Uncontrolled pain Suture Line Care: Avoid Pulling/Pushing, Avoid Pinching/Bending Remove Dressing in (days):: 3 - Leave on for at least 7 days. Can remove in office. Otherwise you can remove it while in the shower Cleanse incision/area with: Soap & Water Home Medications: Medications to take at Discharge Doxylamine Succinate [Unisom Sleep Aid] 25 mg PO DAILY 07/24/17 Omeprazole Magnesium [Prilosec Otc] 20 mg PO DAILY 07/24/17 Vits [Prenatabs FA ] 1 tab PO DAILY 08/27/17 Aspirin, Baby 81 mg PO DAILY 04/26/20 Ondansetron [Zofran] 32 mg SQ DAILY 04/26/20 Sertraline HCl [Zoloft] 75 mg PO DAILY 04/26/20 Labetalol [Trandate] 100 mg PO BID 05/22/20 Docusate Sodium [Colace] 100 mg PO BID PRN PRN #30 cap 05/26/20 Ferrous Sulfate 325 mg PO QODAY #30 tab 05/26/20 Ibuprofen [Motrin] 600 mg PO Q6H PRN PRN #30 tab 05/26/20 Labetalol [Trandate (Beta Gideon)] 300 mg PO BID #180 tab 05/26/20 Oxycodone HCl/Acetaminophen [Percocet 5/325] 1 tab PO Q6H PRN PRN 7 Days #15 tab 05/26/20 Following Prescriptions Were Given to Patient: Docusate Sodium [Colace] 100 mg PO BID PRN PRN #30 cap PRN Reason: Constipation Transmission Status: Received by JEAN[facility] [facility] Ferrous Sulfate 325 mg PO QODAY #30 tab Transmission Status: Received by JEANIE MARQUEZ RD Ibuprofen [Motrin] 600 mg PO Q6H PRN PRN #30 tab PRN Reason: Pain Score 4-10 Transmission Status: Received by JEANIE MARQUEZ RD Oxycodone HCl/Acetaminophen [Percocet 5/325] 1 tab PO Q6H PRN PRN 7 Days #15 tab PRN Reason: Pain Score 6-10 Transmission Status: Received by JEANIE MARQUEZ RD Labetalol [Trandate (Beta Gideon)] 300 mg PO BID #180 tab Transmission Status: Received by JEANIE MARQUEZ RD Primary Care Physician: Rossi Naranjo NP, MOTOR AND GENERATOR BRUSH CUTTER-C [Primary Care Provider] - When: 1 week for incision and blood pressure check. 6 weeks for visit Medical Necessity - Tobacco Use Smoking Status: Never smoker Meaningful Use Info Meaningful Use Diagnoses (Choose all that apply): None applicable
== END 2020-05-26 11:15 | disposition home or self-care (01) | DRG 787 ==
LOC: WPOUT 02:28 → WP 02:28
PROVIDERS: Advanced Practice Midwife; Obstetrics & Gynecology; Admitting Provider Advanced Practice Midwife; PCP Nurse Practitioner Family; Referring Provider Advanced Practice Midwife; Visit Provider Advanced Practice Midwife
DX: O76 Abnormality in fetal heart rate and rhythm complicating labor and delivery (principal); D62 Acute posthemorrhagic anemia; O32.2XX2 Maternal care for transverse and oblique lie, fetus 2; O99.02 Anemia complicating childbirth; O70.1 Second degree perineal laceration during delivery; Z37.2 Twins, both liveborn; O30.043 Twin pregnancy, dichorionic/diamniotic, third trimester; O40.3XX2 Polyhydramnios, third trimester, fetus 2; O13.4 Gestational [pregnancy-induced] hypertension without significant proteinuria, complicating childbirth; O69.81X0 Labor and delivery complicated by cord around neck, without compression, not applicable or unspecified; Z87.59 Personal history of other complications of pregnancy, childbirth and the puerperium; Z3A.36 36 weeks gestation of pregnancy; Z86.59 Personal history of other mental and behavioral disorders; Z79.82 Long term (current) use of aspirin
CPT/HCPCS: 36415; 59025; 59050; 76815; 84112; 85025; 85027; 86803; 86850; 86900; 86901; 86920; 87426; 99218; J7050; J7120; P9016; A4216; G0378; J2405; J2916; J3490

== ENCOUNTER 2021-11-29 16:45 | Emergency (ER) | payer OTHER, SELFPAY ==
[2021-11-29 16:46] VITALS: BP 142/101; PULSE 71; RESP 14; TEMP 36.5; O2SAT 99; BMI 32.5
[2021-11-29] MEDS: Dicyclomine 20 MG/2 ML Vial IM (17:17)
[2021-11-29] MEDS: 0.9% Normal Saline 1,000 ML 1000 ML IV (17:17)
[2021-11-29 17:35] LABS: ALB/GLOB Ratio 1.1 RATIO (0.9-2.4); AST(SGOT) 24 U/L (15-37); Alanine Aminotransfer ALT/SGPT 24 U/L (13-56); Albumin, Serum 3.6 g/dL (3.2-5.0); Alkaline Phosphatase 68 U/L (45-117); Anion Gap 5 (5-15); BUN 16 mg/dL (7-18); BUN/Creat Ratio 19.5 RATIO (10-20); Calcium,Total 8.6 mg/dL (8.5-10.1); Chloride 109 mmol/L (98-107); Creatinine, Serum 0.82 mg/dL (0.55-1.02); EST Glomerular Filtration Rate 87 mL/min (>60); Est Glom Filt Rate - Afr Amer 106 mL/min (>60); Estimated Creatinine Clearance 91.09 ml/min; Globulin 3.2 g/dL (2.2-4.2); Glucose 96 mg/dL (74-106); Lipase 126 U/L (73-393); Magnesium 2.1 mg/dL (1.6-2.6); Protein, Total 6.8 g/dL (6.4-8.2); Sodium Level 139 mmol/L (136-145)
[2021-11-29 17:54] LABS: Absolute Lymphocyte Count 3.57 X10^3/uL (0.83-4.51); Absolute Neutrophil Count 5.5 X10^3/uL (2.0-7.7); Basophil# 0.06 X10^3/uL; Basophil% 0.6 % (0-1); Eosinophils% 3.9 % (0-5); Hematocrit 40.7 % (37-47); Lymphocyte # 3.57 X10^3/ul (0.83-4.51); Lymphocyte % 34.9 % (19-41); Mean Corp Hgb Conc 31.9 g/dL (32-36); Mean Corpuscular Hgb 26.6 pg (27.0-32.0); Mean Corpuscular Volume 83.2 fL (81-99); Mean Platelet Vol. 10.6 fl (6.2-12.0); Monocyte% 6.8 % (0-10); NRBC Flagged by Analyzer 0 % (0-5); Neutrophil # 5.47 X10^3/uL (2.7-7.7); Neutrophil % 53.4 % (47-70); Platelet Count 315 K/mm3 (150-450); RBC Distribution Width CV 13.5 % (11.6-14.6); RBC Distribution Width SD 40.8 fl (35.1-43.9); Red Blood Count 4.89 M/mm3 (4.2-5.4); White Blood Count 10.2 K/mm3 (4.4-11.0)
[2021-11-29 17:57] VITALS: BP 122/63; PULSE 73; O2SAT 98
--- NOTE | 2021-11-29 18:13 | EX.ED.DYSGE1 ---
HPI <SONU Blanc - Last Filed: 11/29/21 18:52> History of Present Illness Chief Complaint: GI Bleed Narrative Narrative: 31-year-old female with history of depression, acid reflux presents the emergency department with 3 days of generalized lower abdominal pain, diarrhea, blood in stool today. Patient has multiple episodes of gross red bleeding in the toilet today after her diarrhea. Patient states the diarrhea is been going on for 3 days with lower abdominal cramping. 1 week ago, the patient's 3 sons all had some sort of a GI bug. States that they were continuously vomiting, diarrhea. Patient does have a family history of ulcerative colitis. She is here for evaluation. Denies any fevers chills nausea or vomiting. PFSH <SONU Blanc - Last Filed: 11/29/21 18:52> [facility] Medical History (Updated 11/29/21 @ 21:[address] Beckie Holland, DO) History of anxiety History of depression Home Medications omeprazole magnesium 20 mg tablet,delayed release (Prilosec OTC) 20 mg PO DAILY heartburn 07/24/17 [History Last Taken 05/21/20 20:30] sertraline 100 mg tablet 75 mg PO DAILY 04/26/20 [History Last Taken 05/21/20 20:30] levofloxacin 750 mg tablet 750 mg PO DAILY #5 tabs 11/29/21 [Rx Last Taken Unknown] losartan 25 mg tablet 25 tab PO DAILY 11/29/21 [History Last Taken Unknown] Allergy/AdvReac Type Severity Reaction Status Date / Time Penicillins [PCN] Allergy Rash Verified 11/29/21 16:46 Social History Smoking Status: Never smoker ROS <SONU Blanc - Last Filed: 11/29/21 18:52> ROS ED ROS Narrative Constitutional: Negative for fever, chills, weight loss, weakness Eyes: Negative for vision loss, vision change, double vision ENT: Negative for any sore throat, ear pain, congestion Cardiovascular: Negative for any chest pain, tightness, palpitations Respiratory: Negative for any cough, sputum production, hemoptysis, dyspnea, dyspnea on exertion, orthopnea Gastrointestinal: Negative for any nausea, vomiting, constipation, blood in vomit. Positive for abdominal pain, diarrhea, blood in stool : Negative for any urinary frequency, dysuria, retention, blood in urine Muscle skeletal: Negative for any muscle joint pain, stiffness, myalgias, arthralgias, neck pain, back pain Neurological: Negative for any headache, syncope, numbness or tingling, dizziness Skin: Negative for any rashes, lumps, itching, abrasions, lacerations Psychiatric: Negative for any depression, anxiety, stress, suicidal ideation, homicidal ideation Hematologic: Negative for any easy bruising, excessive bruising, easy bleeding Allergies: Negative for any eczema, hives, rash EXAM <SONU Blanc - Last Filed: 11/29/21 18:52> Physical Exam Narrative Exam Narrative: Vital signs reviewed. HEET: Head normocephalic atraumatic, TMs clear bilaterally. Posterior pharynx is clear, moist mucous membranes. Nares clear bilaterally. Neck: Supple with no lymphadenopathy or tenderness. No signs of meningismus, negative jolt sign. Cardiac: Regular rate and rhythm no murmurs gallops or rubs, equal peripheral pulses bilaterally. Respiratory: Lungs clear to auscultation bilaterally. No chest tenderness. Abdomen: Soft, nontender, nondistended. No abdominal bruit or pulsatile masses. No hepatosplenomegaly Extremities: No peripheral edema, no signs of gross trauma or deformity. Active full range of motion of all extremities. Neuro: Cranial nerves II through XII intact, no focal neurological deficits. Skin: Clean dry and intact with no rash, purpura, petechiae, vesicles or pustules. Backs/flank: No CVA tenderness, no midline spinal tenderness, no deformity. Psych: Normal mood and affect. No SI, HI or acute psychosis. Rectal Exam: Rectal exam was completed with female nurse fabrication mig welder. Patient did have a hemorrhoid however this was not thrombosed, does not any active bleeding. It was able to be reinserted back to the rectum. Minimal discomfort. Const Vital Signs: 11/29/21 16:46 11/29/21 17:57 11/29/21 19:09 Temperature 97.7 F L Temperature Source Temporal Pulse Rate 71 73 74 Respiratory Rate 14 Blood Pressure 142/101 H 122/63 H 126/67 H Blood Pressure Mean 114 82 86 Pulse Ox 99 98 98 Oxygen Delivery Method Room Air Room Air Room Air 11/29/21 21:26 Temperature Temperature Source Pulse Rate 65 Respiratory Rate 16 Blood Pressure 126/80 H Blood Pressure Mean Pulse Ox 100 Oxygen Delivery Method Positive well nourished and well developed General Appearance ED: well developed <Dr. Beckie Holland DO - Last Filed: 11/29/21 23:34> Physical Exam Const Vital Signs: 11/29/21 16:46 11/29/21 17:57 11/29/21 19:09 Temperature 97.7 F L Temperature Source Temporal Pulse Rate 71 73 74 Respiratory Rate 14 Blood Pressure 142/101 H 122/63 H 126/67 H Blood Pressure Mean 114 82 86 Pulse Ox 99 98 98 Oxygen Delivery Method Room Air Room Air Room Air 11/29/21 21:26 Temperature Temperature Source Pulse Rate 65 Respiratory Rate 16 Blood Pressure 126/80 H Blood Pressure Mean Pulse Ox 100 Oxygen Delivery Method MDM <SONU Blanc - Last Filed: 11/29/21 18:52> MDM Lab Data Labs: Laboratory Results - last 24 hr 11/29/21 11/29/21 11/29/21 17:10 17:10 17:54 WBC 10.2 RBC 4.89 Hgb 13.0 Hct 40.7 MCV 83.2 MCH 26.6 L MCHC 31.9 L RDW Std Deviation 40.8 RDW Coeff of Esa 13.5 Plt Count 315 MPV 10.6 Immature Gran % (Auto) 0.400 Neut % (Auto) 53.4 Lymph % (Auto) 34.9 Roberts % (Auto) 6.8 Eos % (Auto) 3.9 Baso % (Auto) 0.6 Absolute Neuts (auto) 5.5 Absolute Lymphs (auto) 3.57 Nucleated RBC % 0 Sodium 139 Potassium 4.0 Chloride 109 H Carbon Dioxide 25.0 Anion Gap 5 BUN 16 Creatinine 0.82 Estim Creat Clear Calc 91.09 Est GFR (MDRD) Af Amer 106 Est GFR (MDRD) Non-Af 87 BUN/Creatinine Ratio 19.5 Glucose 96 Calcium 8.6 Magnesium 2.1 Total Bilirubin 0.30 AST 24 ALT 24 Alkaline Phosphatase 68 Total Protein 6.8 Albumin 3.6 Globulin 3.2 Albumin/Globulin Ratio 1.1 Lipase 126 Serum , Qual NEGATIVE Radiography Diagnostic Testing: Clinical Impression(s) from Imaging Studies Abdomen/Pelvis CT 11/29/21 19:34 IMPRESSION: Negative CT of the abdomen and pelvis with intravenous contrast. Electronically Signed: Jarett D. Breckwoldt, MD at 20:05 EDT , Treatment and Re-Evaluation Narrative: Patient appears well, patient appears nontoxic, vital signs are stable. Patient presents to the emergency department with concerns of lower abdominal pain, diarrhea for 3 days, blood in stool today. Patient did receive a full abdominal work-up, including laboratory studies, CT scan with IV contrast concerning for any diverticulitis, ulcerative colitis, infectious colitis. <Dr. Beckie Holland, DO - Last Filed: 11/29/21 23:34> [facility] Narrative Medical decision making narrative: I have personally performed a face to face assessment of the patient and have reviewed the MYESHA Note. I performed a substantive portion of the visit including all aspects of the following. My hinojosa findings include: History is patient is evaluated for diarrhea and is now evolved into bright red blood per rectum as well as clots. There is been a diarrheal illness going around her family after a beach vacation. No one else has had blood in her urine. There is a family history of Crohn's disease but patient does not have any known history of inflammatory bowel disease. Patient has some's mild cramping lower abdominal pain. No other complaints at this time. Exam is Well-appearing, no acute distress. Moist Koza membranes. Neck is supple. Lungs clear to auscultation bilaterally. Heart regular rate and rhythm. Abdomen soft and nontender. No peritoneal signs. No CVA tenderness. Normal extremity. No pallor. Medical Decision Making Patient is evaluated for diarrhea illness that is now progressed into bright red blood per rectum. She is well-appearing. CBC is normal. No signs of active bleeding in the ER. No gross blood on rectal exam her PA. She did have a nonbleeding hemorrhoid but does not seem to be the cause of the bleeding. CMP unremarkable. CT abdomen pelvis does not show any acute intra-abdominal pathology. Case discussed with GI, Dr. Lewis, who recommends Levaquin given the blood in case this is bacterial. Patient is given first dose in the emergency room. She given return precautions. Stool studies are pending. Patient encouraged to take Pepto-Bismol at home to help with the diarrhea until stool cultures return. She verbalizes agreement understand this plan. Other additions or changes: [None] Lab Data Attestation: I reviewed the patient's lab results. Labs: Laboratory Results - last 24 hr 11/29/21 11/29/21 11/29/21 17:10 17:10 17:54 WBC 10.2 RBC 4.89 Hgb 13.0 Hct 40.7 MCV 83.2 MCH 26.6 L MCHC 31.9 L RDW Std Deviation 40.8 RDW Coeff of Esa 13.5 Plt Count 315 MPV 10.6 Immature Gran % (Auto) 0.400 Neut % (Auto) 53.4 Lymph % (Auto) 34.9 Roberts % (Auto) 6.8 Eos % (Auto) 3.9 Baso % (Auto) 0.6 Absolute Neuts (auto) 5.5 Absolute Lymphs (auto) 3.57 Nucleated RBC % 0 Sodium 139 Potassium 4.0 Chloride 109 H Carbon Dioxide 25.0 Anion Gap 5 BUN 16 Creatinine 0.82 Estim Creat Clear Calc 91.09 Est GFR (MDRD) Af Amer 106 Est GFR (MDRD) Non-Af 87 BUN/Creatinine Ratio 19.5 Glucose 96 Calcium 8.6 Magnesium 2.1 Total Bilirubin 0.30 AST 24 ALT 24 Alkaline Phosphatase 68 Total Protein 6.8 Albumin 3.6 Globulin 3.2 Albumin/Globulin Ratio 1.1 Lipase 126 Serum , Qual NEGATIVE Radiography Diagnostic Testing: Clinical Impression(s) from Imaging Studies Abdomen/Pelvis CT 11/29/21 19:34 IMPRESSION: Negative CT of the abdomen and pelvis with intravenous contrast. Electronically Signed: Jarett Meyer MD at 20:05 EDT , Discharge Plan Triage Chief Complaint: GI Bleed ED Midlevel Provider: Bogdan Andrew ED Provider: Beckie Holland Dx/Rx/DC Orders Clinical Impression: Diarrhea, BRBPR (bright red blood per rectum) Instructions: ED Diarrhea, Unknown Cause, ED Lower GI Bleeding (Stable) Prescriptions: New levofloxacin 750 mg tablet 750 mg PO DAILY Qty: 5 0RF No Action omeprazole magnesium [Prilosec OTC] 20 MG tablet,delayed release (DR/EC) 20 mg PO DAILY sertraline 100 MG tablet 75 mg PO DAILY losartan 25 mg tablet 25 tab PO DAILY Primary Care Provider: Rossi Naranjo NP Referrals: FriendDhruv DO [STAFF PHYSICIAN] - (If symptoms persist ) Rossi Naranjo NP, CLUTCH ASSEMBLER-C [Primary Care Provider] - Activity Restrictions/Additional Instructions: Take [id number] Pepto-Bismol to help with the diarrhea. Disposition Disposition: Home, Self Care Discharge Date/Time: 11/29/21 21:27
[2021-11-29 18:49] LABS: Internal QC Validated? YES +Cl - CLEAR BKGD; Pregnancy, Serum, hCG Quali. NEGATIVE Negative
[2021-11-29 19:09] VITALS: BP 126/67; PULSE 74; O2SAT 98
--- NOTE | 2021-11-29 19:34 | CT_ITS ---
EXAM: CT ABDOMEN AND PELVIS WITH INTRAVENOUS CONTRAST CLINICAL INDICATION: abdominal pain TECHNIQUE: Helically acquired images were obtained of the abdomen and pelvis with intravenous contrast. This CT exam was performed using one or more of the following dose reduction techniques: automated exposure control, adjustment of the mA and/or kV according to patient size, and/or use of iterative reconstruction technique. This report was created using [employer] report generation technology. CONTRAST: IV 100mL Isovue-300 COMPARISON: None. FINDINGS: LOWER THORAX: Unremarkable. Lung bases are clear. No cardiomegaly. No significant pericardial effusion. ABDOMEN: LIVER: Unremarkable. Homogeneous. No focal mass. GALLBLADDER AND BILE DUCTS: Unremarkable. No calcified gallstones. No gallbladder distention or wall edema. No intra- or extrahepatic biliary ductal dilation. PANCREAS: Unremarkable. No focal cystic or solid mass. SPLEEN: Unremarkable. Normal size without focal cystic or solid mass. ADRENALS: Unremarkable. No nodules. KIDNEYS AND URETERS: Unremarkable. Normal renal size and position. No hydronephrosis. STOMACH AND BOWEL: Unremarkable. No stomach or bowel distention. No focal inflammatory change. PELVIS: APPENDIX: No evidence of acute appendicitis. BLADDER: Unremarkable. REPRODUCTIVE: Unremarkable as visualized. No mass. ABDOMEN and PELVIS: INTRAPERITONEAL SPACE: Unremarkable. No ascites or other fluid collection. No free air. BONES/JOINTS: Unremarkable. No suspicious lytic or blastic abnormality. SOFT TISSUES: Unremarkable. No discrete abdominal or pelvic wall hernia. VASCULATURE: Unremarkable. Abdominal aorta is non-dilated. LYMPH NODES: Unremarkable. No enlarged lymph nodes. CT/Abdomen/Pelvis W IV Cont ONLY IMPRESSION: Negative CT of the abdomen and pelvis with intravenous contrast. Electronically Signed: Jarett Meyer MD at 20:05 EDT ,
[2021-11-29] MEDS: levoFLOXacin 750 MG Tablet PO (21:20)
[2021-11-29 21:26] VITALS: BP 126/80; PULSE 65; RESP 16; O2SAT 100
== END 2021-11-29 21:27 | disposition home or self-care (01) ==
PROVIDERS: Nurse Practitioner; Emergency Provider Emergency Medicine; PCP Nurse Practitioner Family; Visit Provider Emergency Medicine
DX: K92.2 Gastrointestinal hemorrhage, unspecified (principal); R10.30 Lower abdominal pain, unspecified; R19.7 Diarrhea, unspecified
CPT/HCPCS: 74177; 80053; 83690; 83735; 84703; 85025; 87506; 99284; J7030; Q9967; A4216